=== PATIENT | male | born 1955 | race Caucasian/White ===

== ENCOUNTER 2017-04-05 17:35 | Observation (INO) | payer SELFPAY ==
[~2017-04-05] VITALS: Ht 170.2 cm; Wt 46.3 kg
[2017-04-05] MEDS ORDERED: METHYLPREDNISOLONE SOD SUCC 125 MG/2ML VIAL IV STA (18:25)
[2017-04-05] MEDS ORDERED: ALBUTEROL SULF 0.083% NEB SOLN 3 ML NEB NEB STA (18:25)
[2017-04-05] MEDS ORDERED: IPRATROPIUM BROMIDE 0.02% 2.5 ML NEB NEB STA (18:25)
[2017-04-05] MEDS ORDERED: VENTOLIN HFA18 GM INH (18:38)
[2017-04-05] MEDS ORDERED: SYMBICORT 16010.2 GM INH (18:38)
[2017-04-05] MEDS ORDERED: FAMOTIDINE20 MG PO (18:38)
[2017-04-05] MEDS ORDERED: AMLODIPINE BESYL5 MG PO (18:38)
[2017-04-05] MEDS ORDERED: BENZONATATE100 MG PO (18:38)
[2017-04-05 18:47] LABS: BASOPHILS # (AUTO) 0.1 (0.0-0.1); BASOPHILS % 0.8 % (0.0-1.0); EOSINOPHILS # (AUTO) 0.1 (0.0-0.4); HEMATOCRIT 40.4 % (38.2-49.6); HEMOGLOBIN 13.9 g/dL (14.0-18.0); LYMPHOCYTES # (AUTO) 0.9 (1.0-3.2); LYMPHOCYTES % 9.9 % (18.0-39.1); MEAN CORPUSCULAR HEMOGLOBIN 32.3 pg (28-32); MEAN CORPUSCULAR HGB CONC 34.4 g/dL (31-35); MONOCYTES # (AUTO) 0.9 (0.2-0.8); MONOCYTES % 10.2 % (4.4-11.3); NEUTROPHILS # (AUTO) 7.2 (2.1-6.9); NEUTROPHILS % 77.8 % (38.7-80.0); PLATELET COUNT 387 x10e3/uL (140-360); RED CELL DISTRIBUTION WIDTH 12.5 % (11.7-14.4)
[2017-04-05 19:02] LABS: ALANINE AMINOTRANSFERASE 17 IU/L (0-55); ALBUMIN 3.4 g/dL (3.5-5.0); ALBUMIN/GLOBULIN RATIO 0.6 (0.8-2.0); ALKALINE PHOSPHATASE 121 IU/L (40-150); ANION GAP 12.6 mmol/L (8-16); BLOOD UREA NITROGEN 11 mg/dL (7-26); BUN/CREATININE RATIO 17 (6-25); CALCIUM 9.1 mg/dL (8.4-10.2); CARBON DIOXIDE 30 mmol/L (22-29); CHLORIDE 95 mmol/L (98-107); CREATINE KINASE 80 IU/L (30-200); CREATININE, SERUM 0.63 mg/dL (0.72-1.25); EST GLOMERULAR FILTRATION RATE > 60 ML/MIN (60-); GLUCOSE 129 mg/dL (74-118); POTASSIUM 3.6 mmol/L (3.5-5.1); SODIUM 134 mmol/L (136-145)
[2017-04-05 19:09] LABS: TROPONIN I 0.002 ng/mL (0-0.300)
[2017-04-05 19:24] LABS: BILIRUBIN,URINE NEGATIVE (NEGATIVE); COLOR,URINE YELLOW (YELLOW); KETONES,URINE NEGATIVE (NEGATIVE); LEUKOCYTE ESTERASE ,URINE NEGATIVE (NEGATIVE); NITRITE,URINE NEGATIVE (NEGATIVE); URINE UROBILINOGEN 0.2 mg/dL (0.2 - 1)
[2017-04-05 19:27] LABS: CLARITY,URINE CLEAR (CLEAR); PROTEIN,URINE DIPSTICK 1+ (NEGATIVE)
--- NOTE | 2017-04-05 19:30 | Diagnostic Imaging Report ---
EXAMINATION: CHEST SINGLE (PORTABLE) INDICATION: \S\ERMD ORDER \[id number] \S\[id number] \S\Y COMPARISON: None FINDINGS: AP view TUBES and LINES: None. LUNGS: Lungs are well inflated. Central peribronchovascular thickening/cuffing. Left lower lung field hazy opacification. Mild interstitial edema. PLEURA: Small bilateral pleural effusions. No visible pneumothorax. HEART AND MEDIASTINUM: The cardiomediastinal silhouette is unremarkable. BONES AND SOFT TISSUES: No acute osseous lesion. Soft tissues are unremarkable. UPPER ABDOMEN: No free air under the diaphragm. IMPRESSION: Central peribronchovascular thickening/cuffing. Left lower lung field hazy opacification. Underlying pneumonia cannot be excluded. Small bilateral pleural effusions and mild interstitial edema. Signed by: Dr. Isaac Leung MD on 04/05/2017 7:27 PM
[2017-04-05 19:42] LABS: EPITHELIAL CELLS,URINE RARE /LPF; RBC,URINE 0-5 /HPF (0-5)
[2017-04-05] MEDS ORDERED: IPRATROPIUM BROMIDE 0.02% 2.5 ML NEB NEB PRN (20:15)
[2017-04-05] MEDS ORDERED: ALBUTEROL SULF 0.083% NEB SOLN 3 ML NEB NEB PRN (20:15)
[2017-04-05] MEDS: METHYLPREDNISOLONE SOD SUCC 125 MG/2ML VIAL IV SCH (20:52)
[2017-04-05] MEDS: AZITHROMYCIN 500MG/NS 250 ML 250 ML IV SCH (20:52)
[2017-04-05] MEDS: WATER STERILE 10 ML VIAL IV SCH (20:52)
[2017-04-05] MEDS: CEFTRIAXONE SOD 1 GM VIAL IV SCH (20:52)
[2017-04-05] MEDS ORDERED: PRAVASTATIN SOD10 MG PO (20:58)
[2017-04-05] MEDS ORDERED: AMLODIPINE BESYLATE 5 MG TAB PO ONE (21:22)
[2017-04-05] MEDS ORDERED: CLONIDINE HCL 0.1 MG TAB PO PRN (21:30)
[2017-04-06] VITALS (7 sets, daily range): BP systolic 127–174; BP diastolic 80–102
[2017-04-06] MEDS: METHYLPREDNISOLONE SOD SUCC 125 MG/2ML VIAL IV SCH ×3 (05:26→22:19)
[2017-04-06 06:27] LABS: BASOPHILS % 0.2 % (0.0-1.0); HEMATOCRIT 33.9 % (38.2-49.6); LYMPHOCYTES # (AUTO) 0.3 (1.0-3.2); LYMPHOCYTES % 6.1 % (18.0-39.1); MEAN CORPUSCULAR HEMOGLOBIN 31.9 pg (28-32); MEAN CORPUSCULAR HGB CONC 33.9 g/dL (31-35); MEAN CORPUSCULAR VOLUME 93.9 fL (81-99); MONOCYTES # (AUTO) 0.1 (0.2-0.8); MONOCYTES % 1.2 % (4.4-11.3); NEUTROPHILS # (AUTO) 3.9 (2.1-6.9); PLATELET COUNT 366 x10e3/uL (140-360); RED BLOOD COUNT 3.61 x10e6/uL (4.3-5.7); RED CELL DISTRIBUTION WIDTH 12.1 % (11.7-14.4)
[2017-04-06 06:55] LABS: HEMOGLOBIN 11.5 g/dL (14.0-18.0)
[2017-04-06] MEDS ORDERED: BUDESONIDE/FORMOTEROL 160/4.5MCG INHALER INH SCH (07:00)
[2017-04-06 07:06] LABS: BLOOD UREA NITROGEN 13 mg/dL (7-26); BUN/CREATININE RATIO 22 (6-25); CALCIUM 8.8 mg/dL (8.4-10.2); CARBON DIOXIDE 30 mmol/L (22-29); CHLORIDE 100 mmol/L (98-107); CREATINE KINASE 60 IU/L (30-200); EST GLOMERULAR FILTRATION RATE > 60 ML/MIN (60-); GLUCOSE 158 mg/dL (74-118); SODIUM 137 mmol/L (136-145)
[2017-04-06 07:13] LABS: TROPONIN I < 0.001 ng/mL (0-0.300)
[2017-04-06] MEDS: CEFTRIAXONE SOD 1 GM VIAL IV SCH ×2 (08:32→20:39)
[2017-04-06] MEDS: AMLODIPINE BESYLATE 5 MG TAB PO SCH ×2 (08:33→16:13)
[2017-04-06] MEDS: WATER STERILE 10 ML VIAL IV SCH ×2 (08:33→20:39)
[2017-04-06 15:27] LABS: CREATINE KINASE 62 IU/L (30-200)
[2017-04-06 15:36] LABS: TROPONIN I < 0.001 ng/mL (0-0.300)
[2017-04-06] MEDS: AZITHROMYCIN 500MG/NS 250 ML 250 ML IV SCH (20:39)
[2017-04-07 00:35] VITALS: BP 142/85
[2017-04-07 04:59] VITALS: BP 145/85
[2017-04-07] MEDS: METHYLPREDNISOLONE SOD SUCC 125 MG/2ML VIAL IV SCH (06:18)
[2017-04-07] MEDS ORDERED: PNEUMOCOCCAL VACCINE POLYVALENT 23 MCG/0.5 ML VIAL IM ONE (07:30)
[2017-04-07 07:44] VITALS: BP 184/104
[2017-04-07 08:30] LABS: HEMATOCRIT 35.9 % (38.2-49.6); HEMOGLOBIN 12.3 g/dL (14.0-18.0); LYMPHOCYTES # (AUTO) 0.4 (1.0-3.2); LYMPHOCYTES % 3.6 % (18.0-39.1); MEAN CORPUSCULAR HEMOGLOBIN 32.5 pg (28-32); MEAN CORPUSCULAR HGB CONC 34.3 g/dL (31-35); MEAN CORPUSCULAR VOLUME 94.7 fL (81-99); MONOCYTES # (AUTO) 0.3 (0.2-0.8); MONOCYTES % 2.5 % (4.4-11.3); NEUTROPHILS # (AUTO) 9.3 (2.1-6.9); NEUTROPHILS % 93.4 % (38.7-80.0); PLATELET COUNT 421 x10e3/uL (140-360); RED BLOOD COUNT 3.79 x10e6/uL (4.3-5.7); RED CELL DISTRIBUTION WIDTH 12.4 % (11.7-14.4)
[2017-04-07 08:49] LABS: ALANINE AMINOTRANSFERASE 16 IU/L (0-55); ALBUMIN/GLOBULIN RATIO 0.7 (0.8-2.0); ALKALINE PHOSPHATASE 99 IU/L (40-150); ANION GAP 12.8 mmol/L (8-16); BLOOD UREA NITROGEN 12 mg/dL (7-26); BUN/CREATININE RATIO 21 (6-25); CALCIUM 9.1 mg/dL (8.4-10.2); CARBON DIOXIDE 31 mmol/L (22-29); CHLORIDE 96 mmol/L (98-107); CREATININE, SERUM 0.56 mg/dL (0.72-1.25); EST GLOMERULAR FILTRATION RATE > 60 ML/MIN (60-); GLUCOSE 181 mg/dL (74-118); POTASSIUM 3.8 mmol/L (3.5-5.1); SODIUM 136 mmol/L (136-145)
[2017-04-07] MEDS: WATER STERILE 10 ML VIAL IV SCH (09:58)
[2017-04-07] MEDS: CEFTRIAXONE SOD 1 GM VIAL IV SCH (09:58)
[2017-04-07] MEDS: AMLODIPINE BESYLATE 5 MG TAB PO SCH (10:00)
[2017-04-07 10:21] LABS: EOSINOPHILS % (MANUAL) 1 % (0-7); LYMPHOCYTES % (MANUAL) 4 % (19-48); MONOCYTES % (MANUAL) 7 % (3.4-9.0); NEUTROPHILS % (MANUAL) 88 % (40-74); PLATELET ESTIMATE ADEQUATE; PLATELET MORPHOLOGY COMMENT NORMAL; RBC MORPHOLOGY COMMENT NORMAL
[2017-04-07] MEDS ORDERED: BACTRIM DS TAB1 EACH PO (10:25)
[2017-04-07] MEDS ORDERED: PREDNISONE10 MG PO (10:26)
[2017-04-07] MEDS ORDERED: SYMBICORT 16010.2 GM (10:27)
[2017-04-07 11:36] VITALS: BP 148/88
== END 2017-04-07 11:21 | disposition home or self-care (01) ==
LOC: ER 17:35 → ERHOLD 20:19 → IMCU 23:30
PROVIDERS: ADMIT Internal Medicine; ATTEND Internal Medicine
DX: J15.9 Unspecified bacterial pneumonia (principal); J44.0 Chronic obstructive pulmonary disease with (acute) lower respiratory infection; I10 Essential (primary) hypertension; J44.1 Chronic obstructive pulmonary disease with (acute) exacerbation
CPT/HCPCS: 36415 ×3; 71010; 80048; 80053 ×2; 81001; 82550 ×2; 82553 ×2; 82948; 83605; 83735; 83880; 84484 ×2; 85025 ×3; 87040; 87400; 90732; 93005; 96367; 99284; G0378 ×3; J0456 ×2; J0696 ×3; J2930 ×3

== ENCOUNTER 2017-04-27 14:34 | Inpatient (IN) | payer SELFPAY ==
[~2017-04-27] VITALS: Ht 170.2 cm; Wt 45.4 kg
[~2017-04-27 14:34] MED LIST: AMLODIPINE BESYL5 MG PO; BACTRIM DS TAB1 EACH PO; BENZONATATE100 MG PO; FAMOTIDINE20 MG PO; PRAVASTATIN SOD10 MG PO; PREDNISONE10 MG PO; SYMBICORT 16010.2 GM; SYMBICORT 16010.2 GM INH; VENTOLIN HFA18 GM INH
[2017-04-27] MEDS ORDERED: ALBUTEROL SULF 0.083% NEB SOLN 3 ML NEB NEB STA (15:23)
[2017-04-27 17:04] LABS: BASOPHILS % 0.5 % (0.0-1.0); HEMATOCRIT 34.3 % (38.2-49.6); HEMOGLOBIN 12.3 g/dL (14.0-18.0); LYMPHOCYTES # (AUTO) 0.3 (1.0-3.2); LYMPHOCYTES % 3.7 % (18.0-39.1); MEAN CORPUSCULAR HEMOGLOBIN 33.2 pg (28-32); MEAN CORPUSCULAR HGB CONC 35.9 g/dL (31-35); MEAN CORPUSCULAR VOLUME 92.5 fL (81-99); MONOCYTES # (AUTO) 0.6 (0.2-0.8); MONOCYTES % 8.8 % (4.4-11.3); NEUTROPHILS # (AUTO) 6.3 (2.1-6.9); NEUTROPHILS % 86.9 % (38.7-80.0); PLATELET COUNT 226 x10e3/uL (140-360); RED BLOOD COUNT 3.71 x10e6/uL (4.3-5.7); RED CELL DISTRIBUTION WIDTH 13.5 % (11.7-14.4)
--- NOTE | 2017-04-27 17:15 | Diagnostic Imaging Report ---
PROCEDURE: A single AP view of the chest. COMPARISON: Patients [facility], , CHEST SINGLE (PORTABLE), 04/05/2017, 18:47. INDICATIONS: SHORTNESS OF BREATH FINDINGS: Lines/tubes: None. Lungs: Hyperinflated lungs. Interval worsening of predominantly right sided hazy opacities. Prominence of the pulmonary interstitium, predominantly in the lower lobes. Central peribronchial cuffing/ bronchial wall thickening is again noted. Pleura: Unchanged blunting of the right lateral costophrenic sulcus. Heart and mediastinum: The heart and the mediastinum are unremarkable. Bones: No acute bony abnormality. IMPRESSION: 1. findings likely represent superimposed pneumonia in the background of chronic interstitial changes/interstitial lung disease, in the appropriate clinical setting. 2. Stable small right pleural effusion versus pleural thickening. Brain Patel M.D. Dictated by: Brain Patel M.D. on 04/27/2017 at 17:23 Electronically approved by: Brain Patel M.D. on 04/27/2017 at 17:23
[2017-04-27 17:59] LABS: ALANINE AMINOTRANSFERASE 19 IU/L (0-55); ALBUMIN/GLOBULIN RATIO 0.7 (0.8-2.0); ALKALINE PHOSPHATASE 77 IU/L (40-150); ANION GAP 14.8 mmol/L (8-16); BLOOD UREA NITROGEN 14 mg/dL (7-26); BUN/CREATININE RATIO 22 (6-25); CALCIUM 8.9 mg/dL (8.4-10.2); CARBON DIOXIDE 26 mmol/L (22-29); CHLORIDE 90 mmol/L (98-107); CREATINE KINASE 77 IU/L (30-200); CREATININE, SERUM 0.65 mg/dL (0.72-1.25); EST GLOMERULAR FILTRATION RATE > 60 ML/MIN (60-); GLUCOSE 103 mg/dL (74-118); POTASSIUM 3.8 mmol/L (3.5-5.1); SODIUM 127 mmol/L (136-145)
[2017-04-27 18:50] LABS: BAND NEUTROPHILS % (MANUAL) 1 %; LYMPHOCYTES % (MANUAL) 3 % (19-48); METAMYELOCYTES % (MANUAL) 5 % (0-0); MONOCYTES % (MANUAL) 18 % (3.4-9.0); NEUTROPHILS % (MANUAL) 73 % (40-74); PLATELET ESTIMATE ADEQUATE; PLATELET MORPHOLOGY COMMENT FEW EDTA CLUMPING; RBC MORPHOLOGY COMMENT NORMAL
[2017-04-27] MEDS ORDERED: CEFTRIAXONE SOD 1 GM VIAL IM ONE (19:15)
[2017-04-27] MEDS ORDERED: VANCOMYCIN 1GM/NS 250 ML 250 ML IV STA (19:23)
[2017-04-27] MEDS ORDERED: PIPER-TAZ 3.375 GM 50 ML IV STA ×2 (19:23→19:24)
[2017-04-27] MEDS ORDERED: VANCOMYCIN HCL 1GM/NS 250 ML BAG IV SCH (19:30)
[2017-04-27] MEDS: ALBUTEROL SULF 0.083% NEB SOLN 3 ML NEB NEB SCH ×2 (19:30→23:00)
[2017-04-27] MEDS ORDERED: AZITHROMYCIN 500MG/NS 250 ML 250 ML IV ONE (19:30)
[2017-04-27] MEDS ORDERED: ALBUTEROL SULF 0.083% NEB SOLN 3 ML NEB NEB ONE (19:30)
[2017-04-27] MEDS ORDERED: VANCOMYCIN 1GM/NS 250 ML 250 ML IV SCH (19:45)
[2017-04-27] MEDS: SODIUM CHLORIDE 0.9% 1000ML 1,000 ML IV SCH (21:35)
[2017-04-27] MEDS ORDERED: OSELTAMIVIR PHOSPHATE 75 MG CAP PO ONE (22:15)
[2017-04-27] MEDS ORDERED: MAGNESIUM SULFATE 2GM/50ML 50 ML IV ONE (23:45)
[2017-04-27] MEDS ORDERED: ALBUTEROL/IPRATROPIUM 3 ML NEB NEB ONE (23:45)
[2017-04-27] MEDS ORDERED: METHYLPREDNISOLONE SOD SUCC 125 MG/2ML VIAL IV ONE (23:45)
[2017-04-28] MEDS ORDERED: ETOMIDATE 2 MG/ML 10 ML INJ IV STA (00:23)
[2017-04-28] MEDS ORDERED: SUCCINYLCHOLINE 200 MG/10 ML SYR IV STA (00:23)
[2017-04-28] MEDS ORDERED: SUCCINYLCHOLINE CHLORIDE 20 MG/ML 10ML VIAL ONE (00:27)
[2017-04-28] MEDS: PROPOFOL IV EMULSION 10MG/ML 100 ML IV SCH ×3 (01:22→23:34)
[2017-04-28] MEDS: ALBUTEROL SULF 0.083% NEB SOLN 3 ML NEB NEB SCH ×6 (01:25→20:17)
--- NOTE | 2017-04-28 01:31 | Diagnostic Imaging Report ---
EXAM: CHEST SINGLE (PORTABLE), AP 1 view DATE: 04/28/2017 12:40 AM Time stamp on exam: 0106 hours INDICATION: ETT and NGT COMPARISON: AP view of the chest April 27, 2017 FINDINGS: LINES/TUBES: Endotracheal tube terminates 4.7 cm above the deshawn. LUNGS: Emphysematous changes with diffuse bronchial thickening. PLEURA: Possible trace bilateral pleural effusions. HEART AND MEDIASTINUM: Normal size and contour. BONES AND SOFT TISSUES: No acute findings. IMPRESSION: Interval intubation. No nasogastric tube in field of view. Emphysematous changes with diffuse bronchial thickening. Signed by: Dr. Mavis Mosley M.D. on 04/28/2017 1:27 AM
[2017-04-28 01:50] LABS: HEMATOCRIT 32.9 % (38.2-49.6); HEMOGLOBIN 11.6 g/dL (14.0-18.0); LYMPHOCYTES # (AUTO) 0.2 (1.0-3.2); LYMPHOCYTES % 4.9 % (18.0-39.1); MEAN CORPUSCULAR HEMOGLOBIN 32.9 pg (28-32); MEAN CORPUSCULAR HGB CONC 35.3 g/dL (31-35); MEAN CORPUSCULAR VOLUME 93.2 fL (81-99); MONOCYTES # (AUTO) 0.3 (0.2-0.8); NEUTROPHILS # (AUTO) 3.4 (2.1-6.9); NEUTROPHILS % 86.8 % (38.7-80.0); PLATELET COUNT 219 x10e3/uL (140-360); RED BLOOD COUNT 3.53 x10e6/uL (4.3-5.7)
[2017-04-28 02:07] LABS: ALANINE AMINOTRANSFERASE 15 IU/L (0-55); ALBUMIN 2.7 g/dL (3.5-5.0); ALBUMIN/GLOBULIN RATIO 0.7 (0.8-2.0); ALKALINE PHOSPHATASE 66 IU/L (40-150); ANION GAP 14.7 mmol/L (8-16); BLOOD UREA NITROGEN 14 mg/dL (7-26); BUN/CREATININE RATIO 20 (6-25); CALCIUM 8.5 mg/dL (8.4-10.2); CARBON DIOXIDE 24 mmol/L (22-29); CHLORIDE 92 mmol/L (98-107); CREATINE KINASE 90 IU/L (30-200); CREATININE, SERUM 0.69 mg/dL (0.72-1.25); EST GLOMERULAR FILTRATION RATE > 60 ML/MIN (60-); GLUCOSE 180 mg/dL (74-118); POTASSIUM 3.7 mmol/L (3.5-5.1); SODIUM 127 mmol/L (136-145)
[2017-04-28] MEDS: IPRATROPIUM BROMIDE 0.02% 2.5 ML NEB NEB SCH ×4 (04:00→20:17)
[2017-04-28] MEDS: SODIUM CHLORIDE 0.9% 1000ML 1,000 ML IV SCH ×3 (04:08→16:08)
[2017-04-28] MEDS: OSELTAMIVIR PHOSPHATE 75 MG CAP PO SCH ×2 (09:00→17:00)
[2017-04-28 10:37] LABS: CREATINE KINASE 68 IU/L (30-200)
[2017-04-28] MEDS: METHYLPREDNISOLONE SOD SUCC 40 MG/ML VIAL IV SCH ×2 (14:17→22:00)
[2017-04-28] MEDS: ENOXAPARIN SOD INJ 40 MG/0.4 ML SYR SC SCH (14:17)
[2017-04-28] MEDS: ACETAMINOPHEN 325 MG TAB PO PRN (14:17)
[2017-04-28] MEDS: PIPER-TAZ 3.375 GM 50 ML IV SCH ×2 (14:17→21:00)
--- NOTE | 2017-04-28 14:57 | History and Physical ---
CHIEF COMPLAINT: Shortness of breath and wheezing going on for the last few days. HPI: Mr. Seth is a 61-year-old male who is known to have history of COPD. The patient still smokes. He reports that he was discharged from the hospital about 3 weeks ago where he was treated for pneumonia. He was admitted under Dr. Fuentes's care for pneumonia. The patient was treated with antibiotic and sent home. He presented again with complaint of shortness of breath. He has been intubated in the emergency room for respiratory failure; however, he is awake and alert on propofol. REVIEW OF SYSTEMS: Patient denies any chest pain. He was having shortness of breath, now much better with ventilator. Denies any fever or chills. The rest of the review of systems is negative except as in HPI. PAST MEDICAL HISTORY: COPD and hypertension. The patient does not follow up with any physician. FAMILY AND SOCIAL HISTORY: He lives by himself. Still smokes. Denies any family history of heart disease. PHYSICAL EXAMINATION VITAL SIGNS: Temperature 97.8, pulse 83, blood pressure 150/82, respiratory rate 18, O2 sat 100% on 40% FiO2, PEEP 5, tidal volume 450. HEENT: Head is atraumatic and normocephalic. Pupils are reactive. NECK: Supple. Cachectic. CHEST: Reduced air entry bilaterally. HEART: S1 and S2 audible. ABDOMEN: Soft, nontender and nondistended. EXTREMITIES: No clubbing, cyanosis or edema. NEURO: He is awake and alert, following commands. LABS: Sodium 127, potassium 3.8, chloride 90, carbon dioxide 24, BUN 14, creatinine 0.69. AST and ALT normal. White count 3.86, hemoglobin 11.6, platelets 219. Influenza is negative. Blood cultures are pending. Chest x-ray is showing chronic changes, scarring and interstitial markings for the most part unchanged from the previous x-ray. ASSESSMENT/PLAN: Mr. Anthony Seth is a 61-year-old male who has been a smoker for 50-plus years. He presented with worsening shortness of breath and wheezing. Chest x-ray remains unchanged. Likely he is in acute chronic obstructive pulmonary disease exacerbation. Influenza antigen is negative. Sodium is slightly on the lower side. CURRENT PROBLEMS 1. Chronic obstructive pulmonary disease exacerbation. 2. Xhseo-mx-ozvrkhc hypoxic respiratory failure. 3. Mild hyponatremia. PLAN 1. I will continue the patient on nebulizer treatment. 2. Vent support will be continued. 3. I will start the patient on IV Solu-Medrol. Check CT of the chest. The patient is hyponatremic. 4. Will reduce the fluids to 75 mL an hour. 5. Start tube feeds. 6. Lovenox subcutaneous for prophylaxis and gastrointestinal prophylaxis as well. 7. Continue the patient on Tamiflu for now. Critical care time spent 45 minutes. Job#: [id number]
--- NOTE | 2017-04-28 17:09 | Diagnostic Imaging Report ---
EXAMINATION: CHEST SINGLE (PORTABLE) INDICATION: \S\ET tube confirmation \[id number] \S\[id number] \S\Y COMPARISON: Chest radiograph from 04/28/2017 at 108. FINDINGS: AP view TUBES and LINES: Interval placement of endotracheal tube with tip 5.9 cm above the deshawn, at the level of T4. LUNGS: Lungs are well inflated. Improved bilateral interstitial edema. More focal consolidation in the right perihilar region due to aspiration, atelectasis or infection. PLEURA: Unchanged small bilateral pleural effusions. HEART AND MEDIASTINUM: The cardiomediastinal silhouette is unremarkable.. BONES AND SOFT TISSUES: No acute osseous lesion. Soft tissues are unremarkable. UPPER ABDOMEN: No free air under the diaphragm. IMPRESSION: Endotracheal tube in adequate position. Improved bilateral interstitial edema. Signed by: Dr. Reyna Garcia M.D. on 04/28/2017 5:05 PM
--- NOTE | 2017-04-28 18:20 | Diagnostic Imaging Report ---
EXAM: CT Chest WITHOUT contrast 04/28/2017 1:28 PM INDICATION: \S\abnormal cx \[id number] \S\[id number] COMPARISON: Chest radiograph from 04/28/2017 TECHNIQUE: Chest was scanned utilizing a multidetector helical scanner from the lung apex through the level of the adrenal glands without administration of IV contrast. Absence of intravenous contrast decreases sensitivity for detection of lymphadenopathy and vascular pathology. Coronal and sagittal reformations were obtained. Routine protocol was performed. IV CONTRAST: None COMPLICATIONS: None RADIATION DOSE: Total DLP: 361.5 mGy*cm Estimated effective dose: (DLP x 0.015 x size factor) mSv CTDIvol has been reviewed. It is below the limits set by the Radiation Protocol Committee (RPC). FINDINGS: LINES/ TUBES: Endotracheal tube remains in place. LUNGS AND AIRWAYS: Extensive bilateral centrilobular and paraseptal emphysema. Multiple areas of traction bronchiectasis with peribronchial wall thickening and architectural distortion, mainly in the right upper and bilateral lower lobes suggestive of pulmonary fibrosis. The consolidation seen in both lower lobes surrounding the bronchiectasis may represent also aspiration or pneumonia. Diffuse volume loss of the right lower lobe with pulling of the right pulmonary artery and vein corresponds to the abnormality seen on chest radiograph. PLEURA: Trace bilateral pleural effusions. No pneumothorax. HEART AND MEDIASTINUM: The thyroid gland is normal. No mediastinal, hilar or axillary lymphadenopathy. The cardiac silhouette is mildly enlarged. Diffuse coronary artery calcifications. There is no pericardial effusion. The thoracic aorta is normal in caliber and associated with mild atherosclerotic calcifications. The pulmonary artery is normal in caliber. UPPER ABDOMEN: Unremarkable. BONES: Multilevel degenerative changes of the thoracic spine. SOFT TISSUES: Unremarkable. IMPRESSION: Diffuse bilateral centrilobular lumbar septal emphysema with multiple areas of traction bronchiectasis and pulmonary fibrosis. More confluent consolidations in both lower lobes are suggestive of aspiration or pneumonia. The abnormality noted on chest radiograph corresponds to bullosa of the right lower lobe with pooling of the right pulmonary artery and vein. Signed by: Dr. Reyna Garcia M.D. on 04/28/2017 6:17 PM
[2017-04-28 19:00] VITALS: BP 128/70
[2017-04-28 20:00] VITALS: BP 128/70
[2017-04-28 21:00] VITALS: BP 121/74
[2017-04-28 22:00] VITALS: BP 86/62
[2017-04-28] MEDS: VANCOMYCIN 1GM/NS 250 ML 250 ML IV SCH (22:00)
[2017-04-28 23:00] VITALS: BP 95/69
[2017-04-29] VITALS (28 sets, daily range): BP systolic 95–158; BP diastolic 68–109
[2017-04-29] MEDS: IPRATROPIUM BROMIDE 0.02% 2.5 ML NEB NEB SCH ×4 (01:25→19:12)
--- NOTE | 2017-04-29 02:10 | Diagnostic Imaging Report ---
EXAM: ABDOMEN-1VIEW (KUB), semierect DATE: 04/29/2017 1:35 AM Time stamp on exam: 0154 hours INDICATION: NG tube placement COMPARISON: None FINDINGS: See impression IMPRESSION: Limited images of lower chest and upper abdomen for the purpose of tube placement. The tip of the nasogastric tube is in expected location of the fundus of the stomach. Signed by: Dr. Mavis Mosley M.D. on 04/29/2017 2:07 AM
[2017-04-29] MEDS: METHYLPREDNISOLONE SOD SUCC 40 MG/ML VIAL IV SCH ×2 (04:44→17:22)
[2017-04-29] MEDS: PIPER-TAZ 3.375 GM 50 ML IV SCH ×3 (04:44→20:48)
[2017-04-29] MEDS: ALBUTEROL SULF 0.083% NEB SOLN 3 ML NEB NEB SCH ×6 (05:00→19:12)
[2017-04-29 05:06] LABS: BASOPHILS % 0.2 % (0.0-1.0); HEMATOCRIT 27.5 % (38.2-49.6); HEMOGLOBIN 9.7 g/dL (14.0-18.0); LYMPHOCYTES # (AUTO) 0.3 (1.0-3.2); MEAN CORPUSCULAR HEMOGLOBIN 33.3 pg (28-32); MEAN CORPUSCULAR HGB CONC 35.3 g/dL (31-35); MEAN CORPUSCULAR VOLUME 94.5 fL (81-99); MONOCYTES # (AUTO) 0.5 (0.2-0.8); MONOCYTES % 11.6 % (4.4-11.3); NEUTROPHILS # (AUTO) 3.5 (2.1-6.9); NEUTROPHILS % 81.7 % (38.7-80.0); PLATELET COUNT 241 x10e3/uL (140-360); RED BLOOD COUNT 2.91 x10e6/uL (4.3-5.7); RED CELL DISTRIBUTION WIDTH 13.2 % (11.7-14.4)
[2017-04-29 05:22] LABS: ANION GAP 7.7 mmol/L (8-16); BLOOD UREA NITROGEN 14 mg/dL (7-26); BUN/CREATININE RATIO 27 (6-25); CALCIUM 8.4 mg/dL (8.4-10.2); CARBON DIOXIDE 26 mmol/L (22-29); CHLORIDE 100 mmol/L (98-107); CREATININE, SERUM 0.52 mg/dL (0.72-1.25); EST GLOMERULAR FILTRATION RATE > 60 ML/MIN (60-); GLUCOSE 134 mg/dL (74-118); POTASSIUM 3.7 mmol/L (3.5-5.1); SODIUM 130 mmol/L (136-145)
[2017-04-29] MEDS: PROPOFOL IV EMULSION 10MG/ML 100 ML IV SCH (06:40)
--- NOTE | 2017-04-29 09:33 | Diagnostic Imaging Report ---
EXAM: CHEST SINGLE (PORTABLE) DATE: 04/29/2017 8:13 AM INDICATION: Ventilation COMPARISON: 04/29/2017 FINDINGS: ET tube tip above the deshawn, NG tube with side holes below the GE junction present. Heart is not enlarged. No pneumothorax identified. Mild bilateral airspace opacities are present which could represent edema and/or pneumonia. Small pleural effusions present. IMPRESSION: Small effusions with mild edema. Signed by: Dr. Jignesh Stevenson MD on 04/29/2017 9:29 AM
[2017-04-29] MEDS: FAMOTIDINE 20 MG/2 ML VIAL IV SCH (10:18)
[2017-04-29] MEDS: OSELTAMIVIR PHOSPHATE 75 MG CAP PO SCH ×2 (10:18→17:22)
[2017-04-29] MEDS: SODIUM CHLORIDE 0.9% 1000ML 1,000 ML IV SCH ×2 (12:10→12:39)
[2017-04-29 12:21] LABS: BAND NEUTROPHILS % (MANUAL) 42 %; LYMPHOCYTES % (MANUAL) 8 % (19-48); MONOCYTES % (MANUAL) 6 % (3.4-9.0); NEUTROPHILS % (MANUAL) 44 % (40-74); PLATELET MORPHOLOGY COMMENT NORMAL; RBC MORPHOLOGY COMMENT NORMAL
[2017-04-29 12:22] LABS: PLATELET ESTIMATE SLIGHTLY INCREASED
[2017-04-29 13:24] LABS: ABG HCO3 27 mmol/L (23-28); ABG PCO2 45 mmHg (41-51); ABG PH 7.39 (7.31-7.41); ABG PO2 103 mmHg (80-105)
[2017-04-29] MEDS ORDERED: ETOMIDATE 40 MG/ 20ML VIAL IV ONE (14:37)
[2017-04-29] MEDS: ENOXAPARIN SOD INJ 40 MG/0.4 ML SYR SC SCH (17:22)
[2017-04-29] MEDS: AMLODIPINE BESYLATE 5 MG TAB PO SCH (17:23)
[2017-04-29] MEDS: VANCOMYCIN 1GM/NS 250 ML 250 ML IV SCH (20:47)
[2017-04-29] MEDS: ACETAMINOPHEN 325 MG TAB PO PRN (20:56)
[2017-04-30] VITALS (17 sets, daily range): BP systolic 133–180; BP diastolic 95–121
[2017-04-30] MEDS: SODIUM CHLORIDE 0.9% 1000ML 1,000 ML IV SCH ×2 (01:59→12:10)
[2017-04-30] MEDS: ALBUTEROL SULF 0.083% NEB SOLN 3 ML NEB NEB SCH ×5 (03:40→20:30)
[2017-04-30 05:39] LABS: ABG PH 7.42 (7.31-7.41)
[2017-04-30 05:40] LABS: ABG HCO3 32 mmol/L (23-28); ABG PCO2 49 mmHg (41-51); ABG PO2 97 mmHg (80-105)
[2017-04-30] MEDS: PIPER-TAZ 3.375 GM 50 ML IV SCH ×3 (06:09→21:42)
--- NOTE | 2017-04-30 06:22 | Diagnostic Imaging Report ---
EXAM: CHEST SINGLE (PORTABLE), AP 1 view DATE: 04/30/2017 5:00 AM Time stamp on exam: 0516 hours INDICATION: Pneumonia COMPARISON: AP view the chest April 29, 2017 FINDINGS: LINES/TUBES: Interval removal of endotracheal tube and nasal/orogastric tube LUNGS: Stable bilateral airspace opacities PLEURA: Trace bilateral pleural effusions HEART AND MEDIASTINUM: Normal size and contour. BONES AND SOFT TISSUES: No acute findings. IMPRESSION: No interval change Signed by: Dr. Mavis Mosley M.D. on 04/30/2017 6:19 AM
[2017-04-30] MEDS: IPRATROPIUM BROMIDE 0.02% 2.5 ML NEB NEB SCH ×4 (06:36→20:30)
[2017-04-30 06:39] LABS: ANION GAP 11.4 mmol/L (8-16); BLOOD UREA NITROGEN 13 mg/dL (7-26); BUN/CREATININE RATIO 22 (6-25); CALCIUM 8.8 mg/dL (8.4-10.2); CARBON DIOXIDE 29 mmol/L (22-29); CHLORIDE 100 mmol/L (98-107); CREATININE, SERUM 0.58 mg/dL (0.72-1.25); EST GLOMERULAR FILTRATION RATE > 60 ML/MIN (60-); GLUCOSE 169 mg/dL (74-118); POTASSIUM 3.4 mmol/L (3.5-5.1); SODIUM 137 mmol/L (136-145)
[2017-04-30 07:54] LABS: BASOPHILS % 0.2 % (0.0-1.0); HEMOGLOBIN 11.4 g/dL (14.0-18.0); LYMPHOCYTES # (AUTO) 0.4 (1.0-3.2); LYMPHOCYTES % 5.4 % (18.0-39.1); MEAN CORPUSCULAR HEMOGLOBIN 32.4 pg (28-32); MEAN CORPUSCULAR HGB CONC 33.5 g/dL (31-35); MEAN CORPUSCULAR VOLUME 96.6 fL (81-99); MONOCYTES # (AUTO) 0.9 (0.2-0.8); MONOCYTES % 13.7 % (4.4-11.3); NEUTROPHILS # (AUTO) 5.3 (2.1-6.9); NEUTROPHILS % 80.1 % (38.7-80.0); PLATELET COUNT 328 x10e3/uL (140-360); RED BLOOD COUNT 3.52 x10e6/uL (4.3-5.7); RED CELL DISTRIBUTION WIDTH 13.7 % (11.7-14.4)
[2017-04-30] MEDS: FAMOTIDINE 20 MG/2 ML VIAL IV SCH (08:28)
[2017-04-30] MEDS: AMLODIPINE BESYLATE 5 MG TAB PO SCH ×2 (08:28→17:17)
[2017-04-30] MEDS: OSELTAMIVIR PHOSPHATE 75 MG CAP PO SCH ×2 (08:28→17:17)
[2017-04-30] MEDS: METHYLPREDNISOLONE SOD SUCC 40 MG/ML VIAL IV SCH ×2 (08:28→17:17)
[2017-04-30] MEDS ORDERED: LOSARTAN POTASSIUM 25 MG TAB PO SCH (09:00)
[2017-04-30] MEDS ORDERED: METHYLPREDNISOLONE SOD SUCC 40 MG/ML VIAL IV SCH (09:00)
[2017-04-30] MEDS ORDERED: POTASSIUM CHLORIDE 20 MEQ TAB CR PO ONE (12:15)
[2017-04-30] MEDS ORDERED: CLONIDINE HCL 0.1 MG TAB PO ONE (12:30)
[2017-04-30] MEDS: LOSARTAN POTASSIUM 25 MG TAB PO SCH (17:17)
[2017-04-30] MEDS: ENOXAPARIN SOD INJ 40 MG/0.4 ML SYR SC SCH (17:17)
[2017-04-30] MEDS: VANCOMYCIN 1GM/NS 250 ML 250 ML IV SCH (22:20)
[2017-05-01] VITALS: BP 142/97
[2017-05-01] MEDS: IPRATROPIUM BROMIDE 0.02% 2.5 ML NEB NEB SCH ×4 (01:30→20:00)
[2017-05-01] MEDS: ALBUTEROL SULF 0.083% NEB SOLN 3 ML NEB NEB SCH ×5 (01:30→20:00)
[2017-05-01 04:00] VITALS: BP 149/95
[2017-05-01] MEDS: SODIUM CHLORIDE 0.9% 1000ML 1,000 ML IV SCH ×2 (04:42→18:04)
[2017-05-01] MEDS: PIPER-TAZ 3.375 GM 50 ML IV SCH ×3 (05:01→22:11)
[2017-05-01 08:00] VITALS: BP 177/113
[2017-05-01] MEDS: FAMOTIDINE 20 MG/2 ML VIAL IV SCH (08:49)
[2017-05-01] MEDS: METHYLPREDNISOLONE SOD SUCC 40 MG/ML VIAL IV SCH ×2 (08:49→18:03)
[2017-05-01] MEDS: AMLODIPINE BESYLATE 5 MG TAB PO SCH ×2 (08:50→18:03)
[2017-05-01] MEDS: OSELTAMIVIR PHOSPHATE 75 MG CAP PO SCH ×2 (08:50→18:03)
[2017-05-01] MEDS: LOSARTAN POTASSIUM 25 MG TAB PO SCH ×2 (08:50→18:04)
[2017-05-01 12:00] VITALS: BP 167/112
[2017-05-01 16:00] VITALS: BP 172/100
[2017-05-01] MEDS: ENOXAPARIN SOD INJ 40 MG/0.4 ML SYR SC SCH (18:04)
[2017-05-01 20:00] VITALS: BP 159/95
[2017-05-01] MEDS: VANCOMYCIN 1GM/NS 250 ML 250 ML IV SCH (23:27)
[2017-05-02] VITALS (8 sets, daily range): BP systolic 131–154; BP diastolic 85–98
[2017-05-02] MEDS: ALBUTEROL SULF 0.083% NEB SOLN 3 ML NEB NEB SCH ×7 (00:45→23:40)
[2017-05-02] MEDS: IPRATROPIUM BROMIDE 0.02% 2.5 ML NEB NEB SCH ×4 (00:45→19:20)
[2017-05-02] MEDS: PIPER-TAZ 3.375 GM 50 ML IV SCH ×3 (05:37→22:30)
[2017-05-02] MEDS: SODIUM CHLORIDE 0.9% 1000ML 1,000 ML IV SCH ×2 (07:03→21:33)
[2017-05-02] MEDS: LOSARTAN POTASSIUM 25 MG TAB PO SCH ×2 (08:34→17:43)
[2017-05-02] MEDS: METHYLPREDNISOLONE SOD SUCC 40 MG/ML VIAL IV SCH ×2 (08:34→17:42)
[2017-05-02] MEDS: FAMOTIDINE 20 MG/2 ML VIAL IV SCH (08:34)
[2017-05-02] MEDS: AMLODIPINE BESYLATE 5 MG TAB PO SCH ×2 (08:34→17:43)
[2017-05-02] MEDS: OSELTAMIVIR PHOSPHATE 75 MG CAP PO SCH ×2 (08:34→17:43)
[2017-05-02] MEDS: ENOXAPARIN SOD INJ 40 MG/0.4 ML SYR SC SCH (17:43)
[2017-05-02] MEDS ORDERED: LISINOPRIL 2.5 MG TAB PO SCH (21:00)
[2017-05-02] MEDS: VANCOMYCIN 1GM/NS 250 ML 250 ML IV SCH (21:33)
[2017-05-03 00:20] VITALS: BP 125/87
[2017-05-03] MEDS: IPRATROPIUM BROMIDE 0.02% 2.5 ML NEB NEB SCH ×3 (03:18→12:56)
[2017-05-03] MEDS: ALBUTEROL SULF 0.083% NEB SOLN 3 ML NEB NEB SCH ×2 (03:18→07:00)
[2017-05-03 04:00] VITALS: BP 142/93
[2017-05-03] MEDS: PIPER-TAZ 3.375 GM 50 ML IV SCH (05:26)
[2017-05-03 07:20] VITALS: BP 152/97
[2017-05-03] MEDS ORDERED: METHYLPREDNISOLONE SOD SUCC 40 MG/ML VIAL IV SCH (07:30)
[2017-05-03 08:00] VITALS: BP 152/97
[2017-05-03] MEDS: FAMOTIDINE 20 MG/2 ML VIAL IV SCH (09:12)
[2017-05-03] MEDS: LOSARTAN POTASSIUM 25 MG TAB PO SCH (09:12)
[2017-05-03] MEDS: AMLODIPINE BESYLATE 5 MG TAB PO SCH (09:12)
[2017-05-03 12:05] VITALS: BP 156/99
--- NOTE | 2017-05-03 12:30 | Discharge Summary ---
FINAL DIAGNOSES 1. Chronic obstructive pulmonary disease. 2. Acute exacerbation of chronic obstructive pulmonary disease. 3. Ihdxi-au-llyybbd hypoxic and hypercapnic respiratory failure. 4. Mild hyponatremia that has resolved. 5. Severe emphysema on CT scan with traction bronchiectasis and fibrosis. ADMISSION HISTORY AND HOSPITAL COURSE: Mr. Seth is a 61-year-old male who presented with worsening shortness of breath. Patient has been a smoker, still smokes. He has been a smoker for 40+ years. He was initially intubated. Patient improved and extubated. CT of the chest was done, which is showing evidence of traction bronchiectasis, emphysema and pulmonary fibrosis with aspiration pneumonitis. Patient was treated with IV antibiotics and IV steroids. He is doing much better. Wheezing has resolved. He will be discharged home on p.o. prednisone along with antibiotic. He will follow up with his primary care physician. JOSE CARLOS RAYA MD Job#: [id number] EV
[2017-05-04] MEDS ORDERED: FAMOTIDINE 20 MG TAB PO SCH (07:30)
== END 2017-05-03 13:49 | disposition home or self-care (01) | DRG 208 ==
LOC: ER 14:34 → ERHOLD 19:44 → ICU 04-28 17:31 → MED/SURG2 04-30 17:55
PROVIDERS: ADMIT Internal Medicine; ATTEND Internal Medicine
PROC: 0BH17EZ Insertion of Endotracheal Airway into Trachea, Via Natural or Artificial Opening (ICD-10-PCS; principal; 2017-04-28)
PROC: 5A1935Z Respiratory Ventilation, Less than 24 Consecutive Hours (ICD-10-PCS; 2017-04-28)
DX: J69.0 Pneumonitis due to inhalation of food and vomit (principal); J96.21 Acute and chronic respiratory failure with hypoxia; J47.0 Bronchiectasis with acute lower respiratory infection; J84.10 Pulmonary fibrosis, unspecified; J96.22 Acute and chronic respiratory failure with hypercapnia; J44.1 Chronic obstructive pulmonary disease with (acute) exacerbation; E87.1 Hypo-osmolality and hyponatremia; F17.210 Nicotine dependence, cigarettes, uncomplicated; I10 Essential (primary) hypertension
CPT/HCPCS: 31500; 36415; 36600; 71045; 71250; 74018; 80048; 80053; 80202; 82550; 82553; 82805; 82948; 84484; 85025; 87040; 87400; 93005; 94002; 94003; 94640; 99284; J0330; J1650; J2543; J2920; J2930; J3370; J7030

== ENCOUNTER 2018-01-15 11:28 | Emergency (ER) | payer SELFPAY ==
[~2018-01-15] VITALS: Ht 170.2 cm; Wt 45.4 kg
[2018-01-15] MEDS ORDERED: IPRATROPIUM BROMIDE 0.02% 2.5 ML NEB NEB STA (11:58)
[2018-01-15] MEDS ORDERED: ENALAPRILAT IV INJ 1.25 MG/ML VIAL IV STA (11:58)
[2018-01-15] MEDS ORDERED: ALBUTEROL SULF 0.083% NEB SOLN 3 ML NEB NEB STA (11:58)
[2018-01-15] MEDS ORDERED: SODIUM CHLORIDE 0.9% 1000ML 1,000 ML IV SCH (11:58)
[2018-01-15] MEDS ORDERED: ONDANSETRON HCL INJ 2 MG/ML VIAL IV PRN (12:00)
[2018-01-15] MEDS ORDERED: METHYLPREDNISOLONE SOD SUCC 125 MG/2ML VIAL IV ONE (12:00)
[2018-01-15] MEDS ORDERED: AZITHROMYCIN 500MG/NS 250 ML 250 ML IV SCH (12:30)
[2018-01-15] MEDS ORDERED: CEFTRIAXONE SOD 1 GM VIAL IV SCH (12:30)
--- NOTE | 2018-01-15 13:32 | Diagnostic Imaging Report ---
EXAM: CHEST SINGLE (PORTABLE) DATE: 01/15/2018 11:58 AM Time stamp on exam: 12:53 PM INDICATION: Shortness of breath COMPARISON: 04/30/2017 FINDINGS: LINES/TUBES: None LUNGS: Lungs are hyperexpanded consistent with COPD. Mild pulmonary vascular congestion but improved compared to the prior study. PLEURA: Again identified is some pleural thickening in the lower lateral pleural space. Blunting of both costophrenic angles appearing unchanged. HEART AND MEDIASTINUM: Normal size and contour. Tortuous thoracic aorta. BONES AND SOFT TISSUES: No acute findings. IMPRESSION: Mild pulmonary vascular congestion with changes of COPD. Signed by: Dr. Eriberto Carlisle DO on 01/15/2018 1:28 PM
[2018-01-15 14:35] LABS: BASOPHILS % 0.2 % (0.0-1.0); HEMATOCRIT 45.8 % (38.2-49.6); HEMOGLOBIN 16.5 g/dL (14.0-18.0); LYMPHOCYTES # (AUTO) 0.9 (1.0-3.2); LYMPHOCYTES % 10.8 % (18.0-39.1); MEAN CORPUSCULAR HEMOGLOBIN 33.1 pg (28-32); MONOCYTES # (AUTO) 0.9 (0.2-0.8); MONOCYTES % 10.7 % (4.4-11.3); NEUTROPHILS # (AUTO) 6.7 (2.1-6.9); NEUTROPHILS % 78.1 % (38.7-80.0); PLATELET COUNT 265 x10e3/uL (140-360); RED BLOOD COUNT 4.98 x10e6/uL (4.3-5.7); RED CELL DISTRIBUTION WIDTH 11.9 % (11.7-14.4)
[2018-01-15 14:54] LABS: ALANINE AMINOTRANSFERASE 17 IU/L (0-55); ALBUMIN 4.2 g/dL (3.5-5.0); ALBUMIN/GLOBULIN RATIO 1.1 (0.8-2.0); ALKALINE PHOSPHATASE 86 IU/L (40-150); ANION GAP 20.3 mmol/L (8-16); BLOOD UREA NITROGEN 8 mg/dL (7-26); BUN/CREATININE RATIO 13 (6-25); CALCIUM 9.9 mg/dL (8.4-10.2); CARBON DIOXIDE 26 mmol/L (22-29); CHLORIDE 83 mmol/L (98-107); CREATINE KINASE 190 IU/L (30-200); CREATININE, SERUM 0.63 mg/dL (0.72-1.25); EST GLOMERULAR FILTRATION RATE > 60 ML/MIN (60-); GLUCOSE 95 mg/dL (74-118); MAGNESIUM 1.9 MG/DL (1.3-2.1); POTASSIUM 4.3 mmol/L (3.5-5.1); SODIUM 125 mmol/L (136-145)
[2018-01-15 16:50] VITALS: BP 147/99
== END 2018-01-15 17:36 | disposition home or self-care (01) ==
LOC: ER 11:28
DX: R06.00 Dyspnea, unspecified (principal); J20.9 Acute bronchitis, unspecified; J44.9 Chronic obstructive pulmonary disease, unspecified
CPT/HCPCS: 36415; 71045; 80053; 82550; 82553; 83735; 83880; 84484; 85025; 87040; 87400; 93005; 94640; 99284; J0456; J0696; J2405; J2930; J7030

== ENCOUNTER 2018-02-27 10:58 | Inpatient (IN) | payer SELFPAY ==
[~2018-02-27] VITALS: Ht 170.2 cm; Wt 44.5 kg
[2018-02-27] MEDS ORDERED: IPRATROPIUM BROMIDE 0.02% 2.5 ML NEB NEB STA (11:26)
[2018-02-27] MEDS ORDERED: ALBUTEROL SULF 0.083% NEB SOLN 3 ML NEB NEB STA (11:26)
[2018-02-27] MEDS ORDERED: SODIUM CHLORIDE 0.9% 1000ML 1,000 ML IV SCH (11:26)
[2018-02-27] MEDS ORDERED: AZITHROMYCIN 500MG/NS 250 ML 250 ML IV ONE (11:30)
[2018-02-27] MEDS ORDERED: FAMOTIDINE 20 MG/2 ML VIAL IV ONE (11:30)
[2018-02-27] MEDS ORDERED: METHYLPREDNISOLONE SOD SUCC 125 MG/2ML VIAL IV ONE (11:30)
[2018-02-27] MEDS ORDERED: ASPIRIN 81 MG CHEW TAB PO ONE ×2 (11:30→13:30)
[2018-02-27] MEDS ORDERED: SODIUM CHLORIDE FLUSH 10 ML SYR INJ PRN ×2 (11:30→13:30)
[2018-02-27] MEDS ORDERED: ONDANSETRON HCL INJ 2 MG/ML VIAL IV PRN (11:30)
[2018-02-27] MEDS ORDERED: SODIUM CHLORIDE 0.9% 250ML 250 ML ONE (11:42)
[2018-02-27 11:44] LABS: BASOPHILS % 0.4 % (0.0-1.0); HEMATOCRIT 45.2 % (38.2-49.6); HEMOGLOBIN 15.7 g/dL (14.0-18.0); LYMPHOCYTES # (AUTO) 0.3 (1.0-3.2); LYMPHOCYTES % 4.4 % (18.0-39.1); MEAN CORPUSCULAR HEMOGLOBIN 33.1 pg (28-32); MEAN CORPUSCULAR HGB CONC 34.7 g/dL (31-35); MEAN CORPUSCULAR VOLUME 95.2 fL (81-99); MONOCYTES # (AUTO) 1.3 (0.2-0.8); MONOCYTES % 17.7 % (4.4-11.3); NEUTROPHILS # (AUTO) 5.5 (2.1-6.9); NEUTROPHILS % 77.1 % (38.7-80.0); PLATELET COUNT 228 x10e3/uL (140-360); RED BLOOD COUNT 4.75 x10e6/uL (4.3-5.7); RED CELL DISTRIBUTION WIDTH 12.8 % (11.7-14.4)
[2018-02-27] MEDS ORDERED: CEFTRIAXONE SOD 1 GM VIAL IV NR (11:45)
[2018-02-27 12:04] LABS: ALANINE AMINOTRANSFERASE 19 IU/L (0-55); ALBUMIN 4.1 g/dL (3.5-5.0); ALBUMIN/GLOBULIN RATIO 1.1 (0.8-2.0); ALKALINE PHOSPHATASE 80 IU/L (40-150); ANION GAP 21.2 mmol/L (8-16); BLOOD UREA NITROGEN 7 mg/dL (7-26); BUN/CREATININE RATIO 12 (6-25); CALCIUM 9.6 mg/dL (8.4-10.2); CARBON DIOXIDE 22 mmol/L (22-29); CHLORIDE 86 mmol/L (98-107); CREATINE KINASE 103 IU/L (30-200); CREATININE, SERUM 0.57 mg/dL (0.72-1.25); EST GLOMERULAR FILTRATION RATE > 60 ML/MIN (60-); GLUCOSE 112 mg/dL (74-118); POTASSIUM 4.2 mmol/L (3.5-5.1); SODIUM 125 mmol/L (136-145)
--- NOTE | 2018-02-27 12:12 | Diagnostic Imaging Report ---
Examination: Single AP view of the chest. COMPARISON: CT chest 04/28/2017, multiple prior chest radiographs most recently 01/15/2018 INDICATION: Shortness of breath, concern for pneumonia DISCUSSION: Hyperinflated lungs with patchy bilateral airspace opacities. More confluent airspace opacity in the right lower lobe, increased compared to 01/15/2018. Stable blunting of the bilateral costophrenic sulci. Stable cardiomediastinal contour with prominence of the right hilum shown to represent a prominent right pulmonary artery on comparison CT. No acute osseous abnormality. IMPRESSION: Stable findings of COPD. Patchy right greater than left airspace opacities showing represent traction bronchiectasis and fibrotic changes on comparison CT. New more confluent airspace opacity in the right lower lobe is concerning for pneumonia in the clinical setting of cough and shortness of breath. Signed by: Dr. Wade Perrin M.D. on 02/27/2018 12:09 PM
[2018-02-27 14:29] LABS: BAND NEUTROPHILS % (MANUAL) 5 %; LYMPHOCYTES % (MANUAL) 6 % (19-48); MONOCYTES % (MANUAL) 11 % (3.4-9.0); NEUTROPHILS % (MANUAL) 65 % (40-74); PLATELET ESTIMATE ADEQUATE; PLATELET MORPHOLOGY COMMENT NORMAL
[2018-02-27 14:31] LABS: RBC MORPHOLOGY COMMENT NORMAL
[2018-02-27 14:33] LABS: ANISOCYTOSIS SLIGHT
[2018-02-27] MEDS: IPRATROPIUM BROMIDE 0.02% 2.5 ML NEB NEB SCH ×2 (15:35→21:20)
[2018-02-27] MEDS: ALBUTEROL SULF 0.083% NEB SOLN 3 ML NEB NEB SCH ×3 (15:35→21:20)
[2018-02-27] MEDS ORDERED: PREDNISONE20 MG PO (16:29)
[2018-02-27] MEDS ORDERED: LISINOPRIL20 MG PO (16:29)
[2018-02-27] MEDS ORDERED: SEREVENT DISKU50 MCG INH (16:29)
[2018-02-27 20:00] VITALS: BP 107/79
[2018-02-27 20:34] LABS: CREATINE KINASE MB 2.5 ng/mL (0-5.0)
[2018-02-27] MEDS: CEFTRIAXONE SOD 1 GM VIAL IV SCH (21:30)
[2018-02-28] VITALS: BP 116/89
[2018-02-28] MEDS: ALBUTEROL SULF 0.083% NEB SOLN 3 ML NEB NEB SCH ×2 (01:50→06:00)
[2018-02-28] MEDS: IPRATROPIUM BROMIDE 0.02% 2.5 ML NEB NEB SCH ×2 (01:50→06:00)
[2018-02-28 04:00] VITALS: BP 117/84
[2018-02-28 04:00] LABS: CREATINE KINASE MB 2.6 ng/mL (0-5.0)
[2018-02-28 05:28] LABS: BASOPHILS % 0.2 % (0.0-1.0); HEMATOCRIT 35.7 % (38.2-49.6); HEMOGLOBIN 12.4 g/dL (14.0-18.0); LYMPHOCYTES # (AUTO) 0.3 (1.0-3.2); LYMPHOCYTES % 5.8 % (18.0-39.1); MEAN CORPUSCULAR HEMOGLOBIN 33.2 pg (28-32); MEAN CORPUSCULAR HGB CONC 34.7 g/dL (31-35); MEAN CORPUSCULAR VOLUME 95.7 fL (81-99); MONOCYTES # (AUTO) 0.5 (0.2-0.8); MONOCYTES % 9.7 % (4.4-11.3); NEUTROPHILS # (AUTO) 4.5 (2.1-6.9); NEUTROPHILS % 83.9 % (38.7-80.0); PLATELET COUNT 240 x10e3/uL (140-360); RED BLOOD COUNT 3.73 x10e6/uL (4.3-5.7); RED CELL DISTRIBUTION WIDTH 12.9 % (11.7-14.4)
[2018-02-28 05:52] LABS: ANION GAP 14.2 mmol/L (8-16); BLOOD UREA NITROGEN 11 mg/dL (7-26); BUN/CREATININE RATIO 21 (6-25); CALCIUM 8.6 mg/dL (8.4-10.2); CARBON DIOXIDE 26 mmol/L (22-29); CHLORIDE 93 mmol/L (98-107); CREATININE, SERUM 0.52 mg/dL (0.72-1.25); EST GLOMERULAR FILTRATION RATE > 60 ML/MIN (60-); GLUCOSE 153 mg/dL (74-118); POTASSIUM 4.2 mmol/L (3.5-5.1); SODIUM 129 mmol/L (136-145)
--- NOTE | 2018-02-28 07:09 | Diagnostic Imaging Report ---
PROCEDURE: CHEST SINGLE (PORTABLE) COMPARISON: 02/27/2018. INDICATIONS: PNEUMONIA FINDINGS: Stable focal opacity in the right lower lung, with background pulmonary hyperinflation and scattered hazy airspace opacities shown to represent traction bronchiectasis and fibrosis on CT scan from April 2017. No new consolidation. Stable cardiomediastinal contour. No acute osseous abnormality. CONCLUSION: Stable appearance of the chest relative to 02/27/2018 with findings concerning for right basal pneumonia. Dictated by: Wade Perrin M.D. on 02/28/2018 at 7:18 Electronically approved by: Wade Perrin M.D. on 02/28/2018 at 7:18
[2018-02-28 07:51] VITALS: BP 143/93
[2018-02-28] MEDS: CEFTRIAXONE SOD 1 GM VIAL IV SCH ×2 (08:30→20:42)
[2018-02-28] MEDS ORDERED: LISINOPRIL 20 MG TAB PO SCH ×2 (09:00→19:00)
[2018-02-28] MEDS ORDERED: AMLODIPINE BESYLATE 5 MG TAB PO SCH ×2 (09:00→19:00)
[2018-02-28 11:54] VITALS: BP 149/96
[2018-02-28] MEDS: AZITHROMYCIN 500MG/NS 250 ML 250 ML IV SCH (12:00)
[2018-02-28] MEDS ORDERED: SODIUM CHLORIDE 0.9% 250ML 250 ML ONE (12:20)
[2018-02-28] MEDS ORDERED: BENZONATATE 100 MG CAP PO PRN (13:15)
[2018-02-28] MEDS: FAMOTIDINE 20 MG TAB PO SCH ×2 (13:15→16:30)
[2018-02-28] MEDS: ALBUTEROL/IPRATROPIUM 3 ML NEB NEB SCH ×4 (13:30→23:15)
[2018-02-28] MEDS ORDERED: METHYLPREDNISOLONE SOD SUCC 125 MG/2ML VIAL IV NR (13:30)
--- NOTE | 2018-02-28 14:42 | History and Physical ---
PRIMARY CARE PHYSICIAN: Patient has no local PCP. CHIEF COMPLAINT: Shortness of breath and wheezing. HISTORY OF PRESENT ILLNESS: Mr. Seth is a 62-year-old gentleman presenting with worsening cough, wheezing, and shortness of breath times 2 days. He does have a history of COPD. REVIEW OF SYSTEMS: He denies fever, chills or weight loss. He denies sinus congestion or sore throat. He denies chest pain or palpitations. He has shortness of breath, dyspnea with exertion, wheezing, and a hacking cough producing small amounts of sputum. He denies abdominal pain, nausea, vomiting or melena. He denies dysuria or flank pain. He denies rash or pruritus. He denies joint pain or swelling. He denies headache, vertigo or loss of consciousness. He denies depression, agitation, homicidal or suicidal ideation. He denies bleeding or bruising. PAST MEDICAL HISTORY: Significant for hypertension and COPD. He has no surgical history. He still smokes. MEDICATIONS: His regular medications include: Norvasc 5 mg twice daily. Lisinopril 20 mg daily. Pepcid 20 mg twice a day before meals. Pravastatin 10 mg at bedtime. He uses a Serevent Diskus. He uses a Ventolin inhaler and Symbicort inhaler. He also has a nebulizer and does nebulizer treatments at home. He is on prednisone 20 mg daily or has been since his last admission. HE HAS NO KNOWN DRUG ALLERGIES. FAMILY HISTORY: Unremarkable. SOCIAL HISTORY: The patient continues to smoke. He drinks occasionally. He does not use illegal drugs, and he is generally independently functioning. He is , and Syriac is his primary language. PHYSICAL EXAM: PSYCHIATRIC: He is alert and oriented times 3 with normal mood and affect. CONSTITUTIONAL: He has a normal body habitus, may be somewhat underweight. His BMI is 15. His blood pressure 143/93. Pulse is 98 and regular. Respiratory rate 18. O2 sat 98% on 2 liter nasal cannula. Temperature 97.4. HEENT: His head is atraumatic. His eyes are anicteric with clear conjunctivae. Ears and nares are without erythema or discharge. Oropharynx is clear. NECK: Supple with no mass or thyromegaly. LYMPHATIC SYSTEM: He has no palpable cervical, axillary or inguinal adenopathy. CARDIOVASCULAR: His heart has a regular rate and rhythm without murmur or extra heart sound. RESPIRATORY: Lungs reveal diminished breath sounds. He has rhonchi at the right base. He has some prolonged expiration with some end-expiratory wheezing and a hacking cough. He has normal respiratory effort. GASTROINTESTINAL: His abdomen is soft without organomegaly, masses or tenderness. CUTANEOUS: His skin is warm and dry to the touch with no rash or skin breakdown. MUSCULOSKELETAL: His joints are in normal alignment without erythema or swelling. He has no calf tenderness. NEUROLOGIC: Exam is nonfocal with intact cranial nerves and no motor or sensory deficits. DIAGNOSTIC AND LABORATORY STUDIES: His chest x-ray shows COPD changes and right lower lobe pneumonia. His flu screen was negative. Troponin 0.013, 0.010, 0.011. His chemistry shows normal electrolytes. CO2 26. Creatinine 0.52, BUN 11 for a normal GFR. Calcium is 8.6. Glucose initially 112, now 153. His transaminases, bilirubin, alk phos are normal. CBC shows a white count of 5.37 with 84% neutrophils. Hemoglobin 12.4, hematocrit 35.7 and platelet count 240,000. ASSESSMENT AND PLAN: 1. Acute exacerbation of chronic obstructive pulmonary disease. The patient will get supplemental O2, aggressive nebulizers and IV steroids. 2. Right lower lobe pneumonia. The patient will get IV Zithromax and Rocephin along with Mucinex for expectoration. 3. Hypertension. Will continue his Norvasc and lisinopril. 4. Severe protein calorie malnutrition. Will provide dietary supplements. 5. For prophylaxis, the patient will be on Pepcid for GI prophylaxis and SCDs for DVT prophylaxis. Job#: [id number] NATASHA
[2018-02-28] MEDS: GUAIFENESIN 600MG/DEXTROMETHORPHAN 30MG TABSR PO SCH ×2 (15:00→23:18)
[2018-02-28 15:51] VITALS: BP 129/89
[2018-02-28] MEDS: BALSAM PERU/CASTOR OIL 60 GM OINT...G. TP SCH (17:00)
[2018-02-28 20:00] VITALS: BP 122/75
[2018-02-28] MEDS: METHYLPREDNISOLONE SOD SUCC 125 MG/2ML VIAL IV SCH (20:00)
[2018-02-28] MEDS: AMLODIPINE BESYLATE 5 MG TAB PO SCH (20:42)
[2018-02-28] MEDS: LISINOPRIL 20 MG TAB PO SCH (20:42)
[2018-03-01] VITALS (7 sets, daily range): BP systolic 113–146; BP diastolic 75–84
[2018-03-01] MEDS: ALBUTEROL/IPRATROPIUM 3 ML NEB NEB SCH ×5 (03:00→23:50)
[2018-03-01] MEDS: METHYLPREDNISOLONE SOD SUCC 125 MG/2ML VIAL IV SCH (05:52)
[2018-03-01] MEDS: GUAIFENESIN 600MG/DEXTROMETHORPHAN 30MG TABSR PO SCH (05:52)
[2018-03-01 06:00] LABS: BASOPHILS % 0.2 % (0.0-1.0); HEMOGLOBIN 13.8 g/dL (14.0-18.0); LYMPHOCYTES # (AUTO) 0.4 (1.0-3.2); LYMPHOCYTES % 7.9 % (18.0-39.1); MEAN CORPUSCULAR HEMOGLOBIN 33.1 pg (28-32); MEAN CORPUSCULAR HGB CONC 33.7 g/dL (31-35); MEAN CORPUSCULAR VOLUME 98.3 fL (81-99); MONOCYTES # (AUTO) 0.2 (0.2-0.8); MONOCYTES % 3.3 % (4.4-11.3); NEUTROPHILS # (AUTO) 4.7 (2.1-6.9); NEUTROPHILS % 87.7 % (38.7-80.0); PLATELET COUNT 303 x10e3/uL (140-360); RED BLOOD COUNT 4.17 x10e6/uL (4.3-5.7); RED CELL DISTRIBUTION WIDTH 13.1 % (11.7-14.4)
[2018-03-01 06:19] LABS: ANION GAP 13.2 mmol/L (8-16); BLOOD UREA NITROGEN 9 mg/dL (7-26); BUN/CREATININE RATIO 16 (6-25); CALCIUM 8.9 mg/dL (8.4-10.2); CARBON DIOXIDE 33 mmol/L (22-29); CHLORIDE 92 mmol/L (98-107); CREATININE, SERUM 0.57 mg/dL (0.72-1.25); EST GLOMERULAR FILTRATION RATE > 60 ML/MIN (60-); GLUCOSE 157 mg/dL (74-118); MAGNESIUM 2.2 MG/DL (1.3-2.1); POTASSIUM 4.2 mmol/L (3.5-5.1); SODIUM 134 mmol/L (136-145)
[2018-03-01] MEDS: AMLODIPINE BESYLATE 5 MG TAB PO SCH ×2 (08:35→21:00)
[2018-03-01] MEDS: BALSAM PERU/CASTOR OIL 60 GM OINT...G. TP SCH ×2 (08:35→17:09)
[2018-03-01] MEDS: FAMOTIDINE 20 MG TAB PO SCH ×2 (08:35→17:09)
[2018-03-01] MEDS: CEFTRIAXONE SOD 1 GM VIAL IV SCH ×2 (08:35→21:00)
[2018-03-01] MEDS ORDERED: ACETAMINOPHEN 325 MG TAB PO PRN (11:00)
[2018-03-01] MEDS ORDERED: HYDRALAZINE HCL 20 MG/ML VIAL IV PRN (11:00)
[2018-03-01] MEDS ORDERED: HYDRALAZINE HCL 20 MG/ML VIAL IV NR (11:15)
[2018-03-01] MEDS: AZITHROMYCIN 500MG/NS 250 ML 250 ML IV SCH (12:06)
[2018-03-01] MEDS ORDERED: ACETYLCYSTEINE 20% INHAL SOLN 30 ML VIAL INH SCH (12:15)
[2018-03-01] MEDS: ACETYLCYSTEINE 200 MG/ML 4ML VIAL INH SCH ×3 (13:00→23:50)
[2018-03-01] MEDS: METHYLPREDNISOLONE SOD SUCC 40 MG/ML VIAL IV SCH (17:09)
[2018-03-01] MEDS: LISINOPRIL 20 MG TAB PO SCH (21:00)
[2018-03-02] VITALS: BP 153/67
[2018-03-02 00:27] VITALS: BP 142/81
[2018-03-02] MEDS: ALBUTEROL/IPRATROPIUM 3 ML NEB NEB SCH ×3 (03:00→11:35)
[2018-03-02] MEDS: ACETYLCYSTEINE 200 MG/ML 4ML VIAL INH SCH ×3 (03:00→11:35)
[2018-03-02 04:00] VITALS: BP 151/93
[2018-03-02 05:31] LABS: BASOPHILS % 0.2 % (0.0-1.0); HEMATOCRIT 37.3 % (38.2-49.6); HEMOGLOBIN 12.8 g/dL (14.0-18.0); LYMPHOCYTES # (AUTO) 0.6 (1.0-3.2); LYMPHOCYTES % 9.6 % (18.0-39.1); MEAN CORPUSCULAR HEMOGLOBIN 33.2 pg (28-32); MEAN CORPUSCULAR HGB CONC 34.3 g/dL (31-35); MEAN CORPUSCULAR VOLUME 96.6 fL (81-99); MONOCYTES % 16.9 % (4.4-11.3); NEUTROPHILS # (AUTO) 4.2 (2.1-6.9); NEUTROPHILS % 71.1 % (38.7-80.0); PLATELET COUNT 284 x10e3/uL (140-360); RED BLOOD COUNT 3.86 x10e6/uL (4.3-5.7); RED CELL DISTRIBUTION WIDTH 12.8 % (11.7-14.4)
[2018-03-02 05:52] LABS: ANION GAP 13.9 mmol/L (8-16); BLOOD UREA NITROGEN 12 mg/dL (7-26); BUN/CREATININE RATIO 24 (6-25); CALCIUM 8.4 mg/dL (8.4-10.2); CARBON DIOXIDE 31 mmol/L (22-29); CHLORIDE 93 mmol/L (98-107); EST GLOMERULAR FILTRATION RATE > 60 ML/MIN (60-); GLUCOSE 124 mg/dL (74-118); POTASSIUM 3.9 mmol/L (3.5-5.1); SODIUM 134 mmol/L (136-145)
[2018-03-02] MEDS: METHYLPREDNISOLONE SOD SUCC 40 MG/ML VIAL IV SCH (06:44)
[2018-03-02 07:05] VITALS: BP 149/90
[2018-03-02 07:22] LABS: BAND NEUTROPHILS % (MANUAL) 1 %; LYMPHOCYTES % (MANUAL) 8 % (19-48); MONOCYTES % (MANUAL) 9 % (3.4-9.0); NEUTROPHILS % (MANUAL) 82 % (40-74)
[2018-03-02 07:23] LABS: PLATELET ESTIMATE ADEQUATE; PLATELET MORPHOLOGY COMMENT NORMAL; RBC MORPHOLOGY COMMENT NORMAL
[2018-03-02 07:29] VITALS: BP 149/90
[2018-03-02] MEDS: FAMOTIDINE 20 MG TAB PO SCH (09:09)
[2018-03-02] MEDS: AMLODIPINE BESYLATE 5 MG TAB PO SCH (09:09)
[2018-03-02] MEDS: BALSAM PERU/CASTOR OIL 60 GM OINT...G. TP SCH (09:10)
[2018-03-02] MEDS: CEFTRIAXONE SOD 1 GM VIAL IV SCH (09:27)
[2018-03-02] MEDS ORDERED: CEFTIN PO (10:03)
[2018-03-02] MEDS ORDERED: ZITHROMAX500 MG PO (10:03)
[2018-03-02] MEDS ORDERED: PREDNISONE20 MG PO (10:03)
[2018-03-02] MEDS: AZITHROMYCIN 500MG/NS 250 ML 250 ML IV SCH (10:40)
[2018-03-02 11:23] VITALS: BP 144/88
--- NOTE | 2018-03-03 04:55 | Discharge Summary ---
ADMISSION DIAGNOSES 1. Acute exacerbation of chronic obstructive pulmonary disease. 2. Right lower lobe pneumonia. 3. Hypertension. 4. Severe protein calorie malnutrition. DISCHARGE DIAGNOSES 1. Acute exacerbation of chronic obstructive pulmonary disease. 2. Right lower lobe pneumonia. 3. Hypertension. 4. Severe protein calorie malnutrition. HISTORY: Patient has a history of hypertension, COPD, and smokes cigarettes. SURGICAL HISTORY: Patient denies surgical history. HOSPITAL COURSE: This 62-year-old male presents with worsening cough, wheezing, and shortness of breath x2 days. On admission, patient was started on nebulizer, IV steroids, Zithromax, and Rocephin as well as Mucinex. Chest x-ray showed stable findings of COPD, patchy right greater than left airspace opacities, and new airspace opacity in the right lower lobe concerning for pneumonia. Flu swab was negative. Blood cultures were negative. After couple days of IV antibiotics and IV steroids, patient is feeling better. He is refusing Mucinex and only wants Mucomyst. Patient qualifies for oxygen and was set up for home O2 prior to discharge. Patient will be discharged home with remainder of antibiotic course of Zithromax, Rocephin, and tapered dosing of prednisone. Patient understands discharge instructions and agrees to plan. He will follow up with primary care in 1 to 2 weeks. Vital signs stable. Patient afebrile. Dictated by: Nori Bell NP Job#: [id number] AGNES
== END 2018-03-02 12:43 | disposition home or self-care (01) | DRG 193 ==
LOC: ER 10:58 → ERHOLD 13:23 → MED/SURG3 18:19
PROVIDERS: ADMIT Internal Medicine; ATTEND Internal Medicine
DX: J15.9 Unspecified bacterial pneumonia (principal); E43 Unspecified severe protein-calorie malnutrition; J44.0 Chronic obstructive pulmonary disease with (acute) lower respiratory infection; J44.1 Chronic obstructive pulmonary disease with (acute) exacerbation; Z68.1 Body mass index [BMI] 19.9 or less, adult; I10 Essential (primary) hypertension; F17.210 Nicotine dependence, cigarettes, uncomplicated; L89.021 Pressure ulcer of left elbow, stage 1; L89.011 Pressure ulcer of right elbow, stage 1; L89.151 Pressure ulcer of sacral region, stage 1; Z99.81 Dependence on supplemental oxygen; E83.41 Hypermagnesemia; Z79.52 Long term (current) use of systemic steroids
CPT/HCPCS: 36415; 71045; 80048; 80053; 82550; 82553; 83735; 83880; 84443; 84484; 85025; 87040; 87400; 93005; 94640; 99285; J0456; J0696; J2405; J2920; J2930; J7030; J7050

== ENCOUNTER 2022-04-27 14:09 | Inpatient (IN) | payer MEDICARE ==
[~2022-04-27] VITALS: Ht 170.2 cm; Wt 44.1 kg
[~2022-04-27 14:09] MED LIST changes: +CEFTIN PO; +LISINOPRIL20 MG PO; +PREDNISONE20 MG PO; +SEREVENT DISKU50 MCG INH; +ZITHROMAX500 MG PO
[2022-04-27] MEDS ORDERED: SODIUM CHLORIDE 0.9% 1000ML 1,000 ML IV STA (14:53)
[2022-04-27] MEDS ORDERED: METHYLPREDNISOLONE SOD SUCC 125 MG/2ML VIAL IV STA (14:53)
[2022-04-27] MEDS ORDERED: ALBUTEROL/IPRATROPIUM 3 ML NEB NEB ONE (15:00)
[2022-04-27] MEDS ORDERED: ALBUTEROL/IPRATROPIUM 3 ML NEB ONE (15:08)
[2022-04-27 15:13] LABS: BASOPHILS # (AUTO) 0.1 (0.0-0.1); BASOPHILS % 0.5 % (0.0-1.0); HEMATOCRIT 46.5 % (38.2-49.6); HEMOGLOBIN 16.4 g/dL (14.0-18.0); LYMPHOCYTES # (AUTO) 0.5 (1.0-3.2); LYMPHOCYTES % 4.6 % (18.0-39.1); MEAN CORPUSCULAR HGB CONC 35.3 g/dL (31-35); MEAN CORPUSCULAR VOLUME 96.5 fL (81-99); MONOCYTES # (AUTO) 0.9 (0.2-0.8); MONOCYTES % 8.7 % (4.4-11.3); NEUTROPHILS # (AUTO) 8.4 (2.1-6.9); NEUTROPHILS % 85.8 % (38.7-80.0); PLATELET COUNT 262 x10e3/uL (140-360); RED BLOOD COUNT 4.82 x10e6/uL (4.3-5.7); RED CELL DISTRIBUTION WIDTH 12.2 % (11.7-14.4)
[2022-04-27 15:18] LABS: INR 1.01; PROTHROMBIN TIME 13.5 seconds (11.9-14.5)
[2022-04-27 15:19] LABS: PARTIAL THROMBOPLASTIN TIME 28.6 seconds (23.8-35.5)
[2022-04-27 15:33] LABS: ALBUMIN 4.3 g/dL (3.5-5.0); ANION GAP 22.1 mmol/L (8-16); CALCIUM 9.5 mg/dL (8.4-10.2); CREATININE, SERUM 0.74 mg/dL (0.72-1.25); MAGNESIUM 1.8 MG/DL (1.3-2.1); POTASSIUM 4.1 mmol/L (3.5-5.1)
[2022-04-27 15:40] LABS: CREATINE KINASE MB 2.8 ng/mL (0-5.0)
[2022-04-27] MEDS ORDERED: KETOROLAC TROMETHAMINE 30 MG/ML VIAL IV STA (15:50)
[2022-04-27] MEDS ORDERED: ONDANSETRON HCL INJ 2MG/ML 2ML 2 MG/ML VIAL IV PRN (16:45)
[2022-04-27] MEDS ORDERED: Morphine 2mg Syringe 2 MG/ML SYR IV PRN (16:45)
[2022-04-27] MEDS: Doxycycline IV 100 MG in SODIUM CHLORIDE 0.9% 100 ML IV SCH (16:48)
[2022-04-27] MEDS: FAMOTIDINE 20 MG/2 ML VIAL IV SCH (17:19)
[2022-04-27] MEDS: SODIUM CHLORIDE 0.9% 1000ML 1,000 ML IV SCH (17:19)
[2022-04-27 21:26] VITALS: BP 120/88
[2022-04-27 22:00] VITALS: BP 120/88
[2022-04-27] MEDS: METHYLPREDNISOLONE SOD SUCC 125 MG/2ML VIAL IV SCH (22:20)
[2022-04-27 23:00] LABS: CREATINE KINASE MB 2.9 ng/mL (0-5.0)
[2022-04-28] VITALS (8 sets, daily range): BP systolic 105–133; BP diastolic 69–87
[2022-04-28] MEDS ORDERED: LOSARTAN POTAS100 MG PO (03:30)
[2022-04-28 05:36] LABS: HEMATOCRIT 39.1 % (38.2-49.6); LYMPHOCYTES # (AUTO) 0.2 (1.0-3.2); LYMPHOCYTES % 4.1 % (18.0-39.1); MEAN CORPUSCULAR HEMOGLOBIN 34.1 pg (28-32); MEAN CORPUSCULAR HGB CONC 32.7 g/dL (31-35); MEAN CORPUSCULAR VOLUME 104.3 fL (81-99); MONOCYTES # (AUTO) 0.1 (0.2-0.8); MONOCYTES % 1.4 % (4.4-11.3); NEUTROPHILS # (AUTO) 4.6 (2.1-6.9); NEUTROPHILS % 93.9 % (38.7-80.0); PLATELET COUNT 226 x10e3/uL (140-360); RED BLOOD COUNT 3.75 x10e6/uL (4.3-5.7); RED CELL DISTRIBUTION WIDTH 11.7 % (11.7-14.4)
[2022-04-28] MEDS: Doxycycline IV 100 MG in SODIUM CHLORIDE 0.9% 100 ML IV SCH ×2 (05:47→17:12)
[2022-04-28] MEDS: METHYLPREDNISOLONE SOD SUCC 125 MG/2ML VIAL IV SCH ×3 (05:48→21:44)
[2022-04-28] MEDS: FAMOTIDINE 20 MG/2 ML VIAL IV SCH ×2 (05:48→17:12)
[2022-04-28 05:55] LABS: HEMOGLOBIN 12.8 g/dL (14.0-18.0)
[2022-04-28] MEDS: SODIUM CHLORIDE 0.9% 1000ML 1,000 ML IV SCH (06:00)
[2022-04-28 06:10] LABS: ALBUMIN/GLOBULIN RATIO 0.9 (0.8-2.0); ANION GAP 12.6 mmol/L (8-16); CALCIUM 8.1 mg/dL (8.4-10.2); CREATININE, SERUM 0.59 mg/dL (0.72-1.25); POTASSIUM 4.6 mmol/L (3.5-5.1)
[2022-04-28] MEDS: NICOTINE 14 MG/EA PATCH TOP SCH (08:41)
[2022-04-28] MEDS: ALBUTEROL/IPRATROPIUM 3 ML NEB NEB SCH ×3 (14:35→23:05)
[2022-04-28] MEDS ORDERED: IOPAMIDOL 370 MG/ML 100 ML INFUS..BTL INJ ONE (15:03)
[2022-04-29] VITALS (7 sets, daily range): BP systolic 111–130; BP diastolic 62–86
[2022-04-29] MEDS: ALBUTEROL/IPRATROPIUM 3 ML NEB NEB SCH ×6 (03:45→23:07)
[2022-04-29] MEDS: FAMOTIDINE 20 MG/2 ML VIAL IV SCH ×2 (05:31→18:19)
[2022-04-29] MEDS: Doxycycline IV 100 MG in SODIUM CHLORIDE 0.9% 100 ML IV SCH ×2 (05:31→18:19)
[2022-04-29] MEDS: METHYLPREDNISOLONE SOD SUCC 125 MG/2ML VIAL IV SCH ×3 (05:31→21:34)
[2022-04-29 07:32] LABS: BASOPHILS % 0.1 % (0.0-1.0); HEMATOCRIT 39.9 % (38.2-49.6); HEMOGLOBIN 13.2 g/dL (14.0-18.0); LYMPHOCYTES # (AUTO) 0.2 (1.0-3.2); LYMPHOCYTES % 1.4 % (18.0-39.1); MEAN CORPUSCULAR HEMOGLOBIN 33.7 pg (28-32); MEAN CORPUSCULAR HGB CONC 33.1 g/dL (31-35); MEAN CORPUSCULAR VOLUME 101.8 fL (81-99); MONOCYTES # (AUTO) 0.9 (0.2-0.8); MONOCYTES % 6.5 % (4.4-11.3); NEUTROPHILS # (AUTO) 11.8 (2.1-6.9); NEUTROPHILS % 91.1 % (38.7-80.0); PLATELET COUNT 248 x10e3/uL (140-360); RED BLOOD COUNT 3.92 x10e6/uL (4.3-5.7); RED CELL DISTRIBUTION WIDTH 12.6 % (11.7-14.4)
[2022-04-29 08:03] LABS: ALBUMIN 3.3 g/dL (3.5-5.0); ANION GAP 14.7 mmol/L (8-16); CALCIUM 8.9 mg/dL (8.4-10.2); CREATININE, SERUM 0.57 mg/dL (0.72-1.25); POTASSIUM 4.7 mmol/L (3.5-5.1)
[2022-04-29] MEDS: LOSARTAN POTASSIUM 25 MG TAB PO SCH (09:19)
[2022-04-29] MEDS: AMLODIPINE BESYLATE 5 MG TAB PO SCH (09:19)
[2022-04-29] MEDS: NICOTINE 14 MG/EA PATCH TOP SCH (09:20)
[2022-04-29] MEDS: BALSAM PERU/CASTOR OIL 60 GM OINT...G. TP SCH (09:20)
[2022-04-30] VITALS (7 sets, daily range): BP systolic 122–152; BP diastolic 82–90
[2022-04-30] MEDS: ALBUTEROL/IPRATROPIUM 3 ML NEB NEB SCH ×5 (03:00→23:45)
[2022-04-30] MEDS: Doxycycline IV 100 MG in SODIUM CHLORIDE 0.9% 100 ML IV SCH ×2 (06:33→16:58)
[2022-04-30] MEDS: METHYLPREDNISOLONE SOD SUCC 125 MG/2ML VIAL IV SCH ×3 (06:33→21:39)
[2022-04-30] MEDS: FAMOTIDINE 20 MG/2 ML VIAL IV SCH ×2 (06:33→16:58)
[2022-04-30] MEDS: LOSARTAN POTASSIUM 25 MG TAB PO SCH (09:46)
[2022-04-30] MEDS: AMLODIPINE BESYLATE 5 MG TAB PO SCH (09:46)
[2022-04-30] MEDS: NICOTINE 14 MG/EA PATCH TOP SCH (09:47)
[2022-04-30] MEDS: BALSAM PERU/CASTOR OIL 60 GM OINT...G. TP SCH (09:47)
[2022-04-30] MEDS: GUAIFENESIN 600MG/DEXTROMETHORPHAN 30MG TABSR PO SCH (18:22)
[2022-05-01] VITALS (8 sets, daily range): BP systolic 112–142; BP diastolic 76–95
[2022-05-01] MEDS: ALBUTEROL/IPRATROPIUM 3 ML NEB NEB SCH ×6 (03:08→23:40)
[2022-05-01] MEDS: FAMOTIDINE 20 MG/2 ML VIAL IV SCH ×2 (05:29→17:11)
[2022-05-01] MEDS: METHYLPREDNISOLONE SOD SUCC 125 MG/2ML VIAL IV SCH ×3 (05:29→21:56)
[2022-05-01] MEDS: Doxycycline IV 100 MG in SODIUM CHLORIDE 0.9% 100 ML IV SCH ×2 (05:30→17:11)
[2022-05-01 05:51] LABS: HEMATOCRIT 42.1 % (38.2-49.6); LYMPHOCYTES # (AUTO) 0.1 (1.0-3.2); MEAN CORPUSCULAR HEMOGLOBIN 33.5 pg (28-32); MEAN CORPUSCULAR HGB CONC 30.9 g/dL (31-35); MEAN CORPUSCULAR VOLUME 108.5 fL (81-99); MONOCYTES # (AUTO) 0.3 (0.2-0.8); MONOCYTES % 5.1 % (4.4-11.3); NEUTROPHILS # (AUTO) 5.1 (2.1-6.9); PLATELET COUNT 251 x10e3/uL (140-360); RED BLOOD COUNT 3.88 x10e6/uL (4.3-5.7); RED CELL DISTRIBUTION WIDTH 12.5 % (11.7-14.4)
[2022-05-01 06:01] LABS: ANION GAP 15.2 mmol/L (8-16); CALCIUM 8.6 mg/dL (8.4-10.2); CREATININE, SERUM 0.53 mg/dL (0.72-1.25); MAGNESIUM 1.9 MG/DL (1.3-2.1); PHOSPHORUS 3.1 MG/DL (2.3-4.7); POTASSIUM 4.2 mmol/L (3.5-5.1)
[2022-05-01] MEDS: NICOTINE 14 MG/EA PATCH TOP SCH (09:10)
[2022-05-01] MEDS: AMLODIPINE BESYLATE 5 MG TAB PO SCH (09:10)
[2022-05-01] MEDS: BALSAM PERU/CASTOR OIL 60 GM OINT...G. TP SCH (09:10)
[2022-05-01] MEDS: GUAIFENESIN 600MG/DEXTROMETHORPHAN 30MG TABSR PO SCH ×2 (09:10→16:30)
[2022-05-01] MEDS: LOSARTAN POTASSIUM 25 MG TAB PO SCH (09:11)
[2022-05-01] MEDS ORDERED: ONDANSETRON HCL 4 MG ORAL DISINTEGRATING TAB PO PRN (11:45)
[2022-05-02] VITALS (7 sets, daily range): BP systolic 128–147; BP diastolic 83–99
[2022-05-02] MEDS: ALBUTEROL/IPRATROPIUM 3 ML NEB NEB SCH ×6 (02:55→23:40)
[2022-05-02] MEDS: FAMOTIDINE 20 MG/2 ML VIAL IV SCH ×2 (07:13→17:33)
[2022-05-02] MEDS: Doxycycline IV 100 MG in SODIUM CHLORIDE 0.9% 100 ML IV SCH ×2 (07:14→17:33)
[2022-05-02] MEDS: METHYLPREDNISOLONE SOD SUCC 125 MG/2ML VIAL IV SCH ×3 (07:14→21:27)
[2022-05-02] MEDS: AMLODIPINE BESYLATE 5 MG TAB PO SCH (08:36)
[2022-05-02] MEDS: GUAIFENESIN 600MG/DEXTROMETHORPHAN 30MG TABSR PO SCH ×2 (08:36→17:33)
[2022-05-02] MEDS: LOSARTAN POTASSIUM 25 MG TAB PO SCH (08:36)
[2022-05-02] MEDS: NICOTINE 14 MG/EA PATCH TOP SCH (08:37)
[2022-05-02] MEDS: BALSAM PERU/CASTOR OIL 60 GM OINT...G. TP SCH (08:37)
[2022-05-03] VITALS: BP 124/87
[2022-05-03] MEDS: ALBUTEROL/IPRATROPIUM 3 ML NEB NEB SCH ×6 (03:25→23:55)
[2022-05-03 04:00] VITALS: BP 141/89
[2022-05-03] MEDS: Doxycycline IV 100 MG in SODIUM CHLORIDE 0.9% 100 ML IV SCH ×2 (05:45→17:20)
[2022-05-03] MEDS: FAMOTIDINE 20 MG/2 ML VIAL IV SCH ×2 (05:45→17:20)
[2022-05-03] MEDS: METHYLPREDNISOLONE SOD SUCC 125 MG/2ML VIAL IV SCH ×2 (05:45→13:36)
[2022-05-03 08:49] VITALS: BP 142/96
[2022-05-03] MEDS: AMLODIPINE BESYLATE 5 MG TAB PO SCH (09:33)
[2022-05-03] MEDS: LOSARTAN POTASSIUM 25 MG TAB PO SCH (09:34)
[2022-05-03] MEDS: NICOTINE 14 MG/EA PATCH TOP SCH (09:35)
[2022-05-03] MEDS: GUAIFENESIN 600MG/DEXTROMETHORPHAN 30MG TABSR PO SCH ×2 (09:35→16:16)
[2022-05-03] MEDS: BALSAM PERU/CASTOR OIL 60 GM OINT...G. TP SCH (09:40)
[2022-05-03 11:50] VITALS: BP 149/89
[2022-05-03 16:09] VITALS: BP 145/92
[2022-05-03 20:00] VITALS: BP 140/87
[2022-05-03] MEDS: METHYLPREDNISOLONE SOD SUCC 40 MG/ML VIAL 1ML IV SCH (22:10)
[2022-05-04] VITALS: BP 153/90
[2022-05-04] MEDS: ALBUTEROL/IPRATROPIUM 3 ML NEB NEB SCH ×6 (03:00→23:55)
[2022-05-04 04:58] LABS: BASOPHILS % 0.2 % (0.0-1.0); HEMATOCRIT 43.3 % (38.2-49.6); HEMOGLOBIN 13.4 g/dL (14.0-18.0); LYMPHOCYTES # (AUTO) 0.2 (1.0-3.2); LYMPHOCYTES % 3.9 % (18.0-39.1); MEAN CORPUSCULAR HEMOGLOBIN 33.3 pg (28-32); MEAN CORPUSCULAR HGB CONC 30.9 g/dL (31-35); MEAN CORPUSCULAR VOLUME 107.4 fL (81-99); MONOCYTES # (AUTO) 0.4 (0.2-0.8); MONOCYTES % 7.6 % (4.4-11.3); NEUTROPHILS # (AUTO) 4.4 (2.1-6.9); NEUTROPHILS % 86.7 % (38.7-80.0); PLATELET COUNT 239 x10e3/uL (140-360); RED BLOOD COUNT 4.03 x10e6/uL (4.3-5.7); RED CELL DISTRIBUTION WIDTH 12.1 % (11.7-14.4)
[2022-05-04] MEDS: Doxycycline IV 100 MG in SODIUM CHLORIDE 0.9% 100 ML IV SCH ×2 (05:15→16:26)
[2022-05-04 05:16] LABS: ANION GAP 14.7 mmol/L (8-16); CALCIUM 8.4 mg/dL (8.4-10.2); CREATININE, SERUM 0.55 mg/dL (0.72-1.25); POTASSIUM 3.7 mmol/L (3.5-5.1)
[2022-05-04] MEDS: FAMOTIDINE 20 MG/2 ML VIAL IV SCH (05:16)
[2022-05-04 08:00] VITALS: BP 149/92
[2022-05-04] MEDS: AMLODIPINE BESYLATE 5 MG TAB PO SCH (09:26)
[2022-05-04] MEDS: NICOTINE 14 MG/EA PATCH TOP SCH (09:26)
[2022-05-04] MEDS: GUAIFENESIN 600MG/DEXTROMETHORPHAN 30MG TABSR PO SCH ×2 (09:26→16:26)
[2022-05-04] MEDS: LOSARTAN POTASSIUM 25 MG TAB PO SCH (09:26)
[2022-05-04] MEDS: METHYLPREDNISOLONE SOD SUCC 40 MG/ML VIAL 1ML IV SCH ×2 (09:27→21:26)
[2022-05-04] MEDS: BALSAM PERU/CASTOR OIL 60 GM OINT...G. TP SCH (09:27)
[2022-05-04 11:48] VITALS: BP 156/99
[2022-05-04 16:00] VITALS: BP 150/95
[2022-05-04] MEDS: FAMOTIDINE 20 MG TAB PO SCH (16:26)
[2022-05-04 21:03] VITALS: BP 150/95
[2022-05-04 21:08] VITALS: BP 143/92
[2022-05-05] VITALS (8 sets, daily range): BP systolic 131–157; BP diastolic 83–100
[2022-05-05] MEDS: ALBUTEROL/IPRATROPIUM 3 ML NEB NEB SCH ×6 (03:55→23:25)
[2022-05-05] MEDS: Doxycycline IV 100 MG in SODIUM CHLORIDE 0.9% 100 ML IV SCH ×2 (05:23→17:08)
[2022-05-05] MEDS: FAMOTIDINE 20 MG TAB PO SCH ×2 (08:28→16:09)
[2022-05-05] MEDS: PREDNISONE 10 MG TAB PO SCH (08:48)
[2022-05-05] MEDS: BALSAM PERU/CASTOR OIL 60 GM OINT...G. TP SCH (09:37)
[2022-05-05] MEDS: LOSARTAN POTASSIUM 25 MG TAB PO SCH (09:39)
[2022-05-05] MEDS: AMLODIPINE BESYLATE 5 MG TAB PO SCH (09:40)
[2022-05-05] MEDS: GUAIFENESIN 600MG/DEXTROMETHORPHAN 30MG TABSR PO SCH ×2 (09:41→16:09)
[2022-05-05] MEDS: NICOTINE 14 MG/EA PATCH TOP SCH (09:42)
[2022-05-06] MEDS: ALBUTEROL/IPRATROPIUM 3 ML NEB NEB SCH ×3 (03:10→10:58)
[2022-05-06 04:00] VITALS: BP 131/83
[2022-05-06] MEDS: Doxycycline IV 100 MG in SODIUM CHLORIDE 0.9% 100 ML IV SCH (05:34)
[2022-05-06] MEDS: FAMOTIDINE 20 MG TAB PO SCH (07:45)
[2022-05-06] MEDS: PREDNISONE 10 MG TAB PO SCH (07:45)
[2022-05-06 08:23] VITALS: BP 141/92
[2022-05-06] MEDS ORDERED: PNEUMOCOCCAL VACCINE POLYVALENT 23 MCG/0.5 ML VIAL IM ONE ×2 (08:30→09:30)
[2022-05-06 08:34] VITALS: BP 141/92
[2022-05-06] MEDS: NICOTINE 14 MG/EA PATCH TOP SCH (09:33)
[2022-05-06] MEDS: BALSAM PERU/CASTOR OIL 60 GM OINT...G. TP SCH (09:33)
[2022-05-06] MEDS: GUAIFENESIN 600MG/DEXTROMETHORPHAN 30MG TABSR PO SCH (09:33)
[2022-05-06] MEDS: LOSARTAN POTASSIUM 25 MG TAB PO SCH (09:33)
[2022-05-06] MEDS: AMLODIPINE BESYLATE 5 MG TAB PO SCH (09:33)
[2022-05-06] MEDS ORDERED: ALBUTEROL0.63 MG/3 NEB (11:20)
[2022-05-06 11:57] VITALS: BP 156/92
== END 2022-05-06 13:21 | disposition home or self-care (01) | DRG 190 ==
LOC: ER 14:48 → ERHOLD 16:41 → MED/SURG2 20:00
PROVIDERS: ADMIT Internal Medicine; ATTEND Internal Medicine
DX: J44.1 Chronic obstructive pulmonary disease with (acute) exacerbation (principal); J69.0 Pneumonitis due to inhalation of food and vomit; E44.0 Moderate protein-calorie malnutrition; R64 Cachexia; Z68.1 Body mass index [BMI] 19.9 or less, adult; J90 Pleural effusion, not elsewhere classified; R59.0 Localized enlarged lymph nodes; R13.10 Dysphagia, unspecified; F17.210 Nicotine dependence, cigarettes, uncomplicated; D64.9 Anemia, unspecified; I10 Essential (primary) hypertension; E78.5 Hyperlipidemia, unspecified; Z99.81 Dependence on supplemental oxygen; Z63.9 Problem related to primary support group, unspecified; Z79.2 Long term (current) use of antibiotics; Z79.52 Long term (current) use of systemic steroids; Z79.899 Other long term (current) drug therapy; Z86.19 Personal history of other infectious and parasitic diseases
CPT/HCPCS: 36415; 71045; 71260; 74230; 80048; 80053; 82550; 82553; 83605; 83735; 83880; 84100; 84484; 85025; 85610; 85730; 87040; 90732; 93005; 94640; 94799; 96360; 96361; 99252; 99284; J0696; J1885; J2920; J2930; J7030; J7050; J7512; Q9967

== ENCOUNTER 2022-05-30 13:41 | Emergency (ER) | payer MEDICARE ==
[~2022-05-30] VITALS: Ht 170.2 cm; Wt 44.0 kg
[~2022-05-30 13:41] MED LIST changes: +ALBUTEROL0.63 MG/3 NEB; +LOSARTAN POTAS100 MG PO
[2022-05-30] MEDS ORDERED: ALBUTEROL/IPRATROPIUM 3 ML NEB NEB ONE (14:15)
[2022-05-30] MEDS ORDERED: DEXAMETHASONE SOD PHOS 10 MG/1 ML VIAL IV ONE (14:15)
[2022-05-30 14:23] LABS: BASOPHILS % 0.6 % (0.0-1.0); EOSINOPHILS % 0.2 % (0.0-6.0); HEMATOCRIT 48.4 % (38.2-49.6); HEMOGLOBIN 17.1 g/dL (14.0-18.0); LYMPHOCYTES # (AUTO) 0.5 (1.0-3.2); LYMPHOCYTES % 7.9 % (18.0-39.1); MEAN CORPUSCULAR HEMOGLOBIN 33.9 pg (28-32); MEAN CORPUSCULAR HGB CONC 35.3 g/dL (31-35); MONOCYTES # (AUTO) 0.8 (0.2-0.8); PLATELET COUNT 283 x10e3/uL (140-360); RED BLOOD COUNT 5.04 x10e6/uL (4.3-5.7); RED CELL DISTRIBUTION WIDTH 12.9 % (11.7-14.4)
[2022-05-30 14:43] LABS: ALBUMIN 4.6 g/dL (3.5-5.0); ALBUMIN/GLOBULIN RATIO 1.2 (0.8-2.0); ANION GAP 19.2 mmol/L (8-16); CALCIUM 10.1 mg/dL (8.4-10.2); CREATININE, SERUM 0.75 mg/dL (0.72-1.25); POTASSIUM 4.2 mmol/L (3.5-5.1)
[2022-05-30] MEDS ORDERED: SODIUM CHLORIDE 0.9% 1000ML 1,000 ML IV SCH (15:45)
[2022-05-30 19:54] VITALS: BP 109/79
== END 2022-05-30 19:45 | disposition other institution (70) ==
LOC: ER 13:41
DX: R06.02 Shortness of breath (principal); J44.1 Chronic obstructive pulmonary disease with (acute) exacerbation; I10 Essential (primary) hypertension; E78.5 Hyperlipidemia, unspecified; J45.909 Unspecified asthma, uncomplicated; R94.31 Abnormal electrocardiogram [ECG] [EKG]
CPT/HCPCS: 36415; 71045; 80053; 83880; 84484; 85025; 93005; 99284; J1100; J7030; U0002